=== PATIENT | male | born 1945 | race Caucasian/White ===

== ENCOUNTER 2019-04-23 07:49 | Inpatient (IN) ==
--- NOTE | 2019-04-04 10:08 | PAT Medication Instructions ---
Medication Instructions Date of Service April 04, 2019 Home Medications PreserVision AREDS 1 tab PO BID Probiotic 3,000 mmu cells PO QAM aspirin 81 mg PO QPM coenzyme Q10 [Co Q-10] 200 mg PO DAILY fluticasone propionate [Flonase Allergy Relief] 2 spray INTRANASAL DAILY PRN furosemide 40 mg PO QAM gabapentin 300 mg PO TID lisinopril 10 mg PO QAM metformin 1,000 mg PO BID multivitamin 1 cap PO QAM nitroglycerin [Nitrostat] 1 tab SUBLINGUAL UD omeprazole 40 mg PO QAM potassium chloride 20 meq PO QAM rosuvastatin [Crestor] 40 mg PO QPM vitamin B complex 1 cap PO DAILY bupropion HCl 300 mg PO QAM cholecalciferol (vitamin D3) [Vitamin D3] 50 mcg PO DAILY docusate sodium [Stool Softener] 200 mg PO HS empagliflozin 10 mg PO QAM empagliflozin [Jardiance] 10 mg PO QAM etodolac 1,000 mg PO DAILY metoprolol succinate 25 mg PO QAM sennosides 17.2 mg PO HS Continue as directed nitroglycerin [Nitrostat] 1 tab SUBLINGUAL UD ASK your surgeon for instructions etodolac 1,000 mg PO DAILY ASK your prescriber and surgeon aspirin 81 mg PO QPM STOP taking 2 weeks before surgery (or as soon as possible if surgery is within 2 weeks) PreserVision AREDS 1 tab PO BID coenzyme Q10 [Co Q-10] 200 mg PO DAILY DO NOT take the morning of surgery Probiotic 3,000 mmu cells PO QAM furosemide 40 mg PO QAM lisinopril 10 mg PO QAM metformin 1,000 mg PO BID multivitamin 1 cap PO QAM potassium chloride 20 meq PO QAM vitamin B complex 1 cap PO DAILY cholecalciferol (vitamin D3) [Vitamin D3] 50 mcg PO DAILY empagliflozin 10 mg PO QAM empagliflozin [Jardiance] 10 mg PO QAM Take morning of surgery With a small sip of water, OTHERWISE NOTHING TO EAT OR DRINK AFTER MIDNIGHT: fluticasone propionate [Flonase Allergy Relief] 2 spray INTRANASAL DAILY PRN (if needed) gabapentin 300 mg PO TID omeprazole 40 mg PO QAM bupropion HCl 300 mg PO QAM metoprolol succinate 25 mg PO QAM Take evening before surgery fluticasone propionate [Flonase Allergy Relief] 2 spray INTRANASAL DAILY PRN (if needed) gabapentin 300 mg PO TID metformin 1,000 mg PO BID rosuvastatin [Crestor] 40 mg PO QPM docusate sodium [Stool Softener] 200 mg PO HS sennosides 17.2 mg PO HS Other Notes If you have any questions please call us at [phone] or [phone] or [phone] or [phone]
--- NOTE | 2019-04-06 10:08 | Anesthesiology Consultation ---
Date of Service April 06, 2019 Assessment & Plan (1) Encounter for pre-operative examination: CHECK BSG AM DOS Chart Review Chart Review: Acceptable Risk for Surgery (pending cardio clearance 04/13) and Patient seen in Pre Admission Testing Teaching & Discussion Instructed NPO after midnight before surgery, except medications with 15 cc of water. Medication instructions provided according to the PAT guidelines. History Surgery Operation Date: 04/23/19 10:25 Proposed Procedures p L2-S1 Decompression and Fusion, Spinal Cord Monitoring - Tam Bailey DO Height/Weight Height: 6 ft 2 in Weight: 113.8 kg Allergies Allergy/AdvReac Type Severity Reaction Status Date / Time etodolac Allergy Unknown PAINFUL Verified 03/29/19 09:37 STOMACH IRRITATION Penicillins Allergy Unknown Rash Verified 03/29/19 09:37 Medications Home Medications Medication Instructions Recorded Confirmed Last Taken PreserVision AREDS 1 tab PO BID 03/08/18 03/29/19 03/08/18 1 tab Probiotic 3,000 mmu cells PO QAM 03/08/18 03/29/19 03/08/18 3000 mmu cells aspirin 81 mg PO QPM 03/08/18 03/29/19 03/06/18 coenzyme Q10 [Co Q-10] 200 mg PO DAILY 03/08/18 03/29/19 03/08/18 10 mg fluticasone propionate [Flonase 2 spray INTRANASAL DAILY PRN 03/08/18 03/29/19 Unknown Allergy Relief] furosemide 40 mg PO QAM 03/08/18 03/29/19 03/08/18 40 mg gabapentin 300 mg PO TID 03/08/18 03/29/19 03/08/18 22:00 300 mg lisinopril 10 mg PO QAM 03/08/18 03/29/19 03/08/18 10 mg metformin 1,000 mg PO BID 03/08/18 03/29/19 03/07/18 multivitamin 1 cap PO QAM 03/08/18 03/29/19 03/08/18 1 cap nitroglycerin [Nitrostat] 1 tab SUBLINGUAL UD 03/08/18 03/29/19 Unknown omeprazole 40 mg PO QAM 03/08/18 03/29/19 03/08/18 40 mg potassium chloride 20 meq PO QAM 03/08/18 03/29/19 03/08/18 20 mEq rosuvastatin [Crestor] 40 mg PO QPM 03/08/18 03/29/19 03/08/18 22:00 40 mg vitamin B complex 1 cap PO DAILY 03/08/18 03/29/19 03/08/18 1 cap bupropion HCl 300 mg PO QAM 03/29/19 03/29/19 Unknown cholecalciferol (vitamin D3) 50 mcg PO DAILY 03/29/19 03/29/19 Unknown [Vitamin D3] docusate sodium [Stool Softener] 200 mg PO HS 03/29/19 03/29/19 Unknown empagliflozin 10 mg PO QAM 03/29/19 03/29/19 Unknown empagliflozin [Jardiance] 10 mg PO QAM 03/29/19 03/29/19 Unknown metoprolol succinate 25 mg PO QAM 03/29/19 03/29/19 Unknown sennosides 17.2 mg PO HS 03/29/19 03/29/19 Unknown Past Medical History Medical History (Updated 04/06/19 @ 10:06 by Conrado Phipps) Anxiety Asthma Allergic CAD (coronary artery disease) Cervical radiculopathy Constipation Depression Diabetes mellitus, type 2 GERD (gastroesophageal reflux disease) Gum disease Painful and bleeding, to see dentist 04/06 for cleaning. Hyperlipidemia Hypertension Lumbar radiculopathy Numbness in buttocks and down LEs Myocardial Infarction 2000 and heart cath with stent x2 - [facility], then one month later CABG x 3 Osteoarthritis Peripheral neuropathy Feet and hands Sleep apnea cpap Spinal stenosis, lumbar region with neurogenic claudication Exercise / Class Metabolic Activity II 4-5 Yardwork/Stairs/Walk up hill (Denies CP or SOB with 1 FOS, does stairs daily at home (17 steps)) Past Family History Family History (Updated 03/29/19 @ 09:23 by Dedrick Allen RN) Other Family history of cancer in father Past Surgical History Surgical History History of arthroscopy right and left shoulder History of carpal tunnel release right and left History of colonoscopy History of coronary artery bypass graft 2000 and heart cath with stent x2 - [facility], a few months CABG x 3 History of ear surgery as child History of mandibular surgery hx of jaw surgery History of total knee replacement right and left Hx of cardiac cath 2000 and heart cath with stent x2 - [facility], a few months CABG x 3 Hx of foot surgery left foot and pins Hx of hand surgery repair of left thumb Hx of vasectomy and reversal Past Anesthesia History No Hx of Anesthesia Complications and No Family Hx of Anesthesia Complications History of PONV No Hx of PONV and No Hx of Motion Sickness Social History Smoking Status: Former smoker Do You Dip or Chew Tobacco: No Smoking End Date: Hx Alcohol Use: Yes Alcohol type: beer alcohol intake frequency: other Alcohol Intake Frequency Comment: A BEER EVERY 6 MON Hx Substance Use: No substance use type: does not use Review of Systems Pt denies any recent chest pain, shortness of breath, palpitations, cough, fever or URI. +sinus drainage, taking allergy pill Physical Exam Vital Signs BP: 103/68 P: 93bpm SPO2: 98% RA T: 97.6 F R: 12 ENMT Mouth: + dental restorations (possible crown) and + poor dentition; no chipped teeth and no loose teeth Thyromental Distance: > or= 3.5 Finger Breadths (4) Mallampati Class: I Neck + short neck; neck extension not limited Respiratory normal respiratory effort Auscultation: lungs clear to auscultation bilaterally Cardiovascular Rate/Rhythm: regular rhythm and + tachycardic (borderline) Heart Sounds: no murmur Vessels: no carotid bruit Extremities: no edema Testing Laboratory Results 04/06/19 10:21 04/06/19 10:21 PT 10.3 Seconds (9.0-12.0) 04/06/19 10:21 INR 1.0 (0.9-1.1) 04/06/19 10:21 APTT 32.5 Seconds (21.0-31.0) H 04/06/19 10:21 Hemoglobin A1c 7.5 % (4.5-5.6) H 04/06/19 10:21 Urine Color Yellow 04/06/19 10:21 Urine Appearance Clear (Clear) 04/06/19 10:21 Urine pH 5.0 (4.5-7.5) 04/06/19 10:21 Ur Specific [place] 1.013 (1.000-1.030) 04/06/19 10:21 Urine Protein Negative (Negative) 04/06/19 10:21 Urine Glucose (UA) 3+ (Negative) H 04/06/19 10:21 Urine Ketones Negative (Negative) 04/06/19 10:21 Urine Nitrite Negative (Negative) 04/06/19 10:21 Ur Leukocyte Esterase Negative (Negative) 04/06/19 10:21 Blood Type O Negative 04/06/19 10:21 Antibody Screen NEGATIVE 04/06/19 10:21 *Surgeon's office flagged re: elevated A1C/glucose. Electrocardiogram Date: 04/06/19 Sinus rhythm at 76 bpm with first-degree AV block and premature supraventricular complexes. Left axis deviation. 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 Compared with EKG of 03/07/2018, no significant change. Chest X-Ray Date: 04/06/19 1. Cardiomegaly without radiographic evidence of congestive failure. 2. Left greater than right bibasilar airspace opacities likely represent scarring/atelectasis. Clinical correlation will be required. *Lungs CTA on exam, pt complaining only of sinus drainage. Afebrile. Stress Test Date: 02/11/16 Type: exercise Adequate stress test at 85% MPHR. No echocardiographic evidence of exercise- induced myocardial ischemia. It should be noted that images were obtained at heart rate less than 111 bpm which may reduce the sensitivity of this test for the detection of coronary artery disease for ischemia. Equivocal 0.5 to 1 [address] ri[address]ontal downsloping ST segment depression is noted in lateral leads. Adequate cardiovascular stress. Functional capacity of 6.5 METS. No significant arrhythmias were noted. Normal blood pressure and heart rate response to exercise. Patient denied chest discomfort reporting only shortness of breath at peak exercise. Resting echo shows EF 64%. Mild concentric LVH. No LV segmental wall motion abnormalities. Grade 1 diastolic dysfunction. The left and right atrium are normal size. Right ventricular cavity size and systolic function are normal. There is aortic valve sclerosis without stenosis. There is mild mitral annular calcification.
--- NOTE | 2019-04-06 11:00 | XRay Report ---
TWO VIEW CHEST CLINICAL HISTORY: Preoperative examination. FINDINGS: PA and lateral chest radiographs are compared to study dated 12/09/2011. The heart is enlarg ed noting atherosclerotic calcification of the thoracic aorta. The pulmonary vasculature is nonconges stevan. Airspace opacities are seen at the left lung base. Scarring/atelectasis is noted bilaterally. Th ere is no pleural effusion or pneumothorax. The skeletal structures are osteopenic. The bony thorax a ppears intact. IMPRESSION: 1. Cardiomegaly without radiographic evidence of congestive failure. 2. Left greater than right bibasilar airspace opacities likely represent scarring/atelectasis. Clinic al correlation will be required. ACT 112: Negative or not required by law. Electronically signed by: Len Gonzales M.D. 04/06/2019 10:59 AM
[2019-04-06 11:30] LABS: Basophils # (auto) 0.04 K/uL (0-0.2); Basophils % (auto) 0.5 %; Eosinophils # (auto) 0.36 K/uL (0-0.5); Eosinophils % (auto) 4.7 %; Hematocrit (blood only) 43.4 % (42-52); Hemoglobin 14.6 g/dL (14.0-18.0); Immature Granulocytes # (auto) 0.02 K/uL (0.00-0.02); Immature Granulocytes % (auto) 0.3 %; Lymphocytes # (auto) 1.65 K/uL (1.2-3.4); Lymphocytes % (auto) 21.6 %; Mean Corpuscular Hemoglobin 29.5 pg (25-34); Mean Corpuscular Hgb Conc 33.6 g/dL (32-36); Mean Corpuscular Volume 87.7 fL (80-100); Mean Platelet Volume 9.8 fL (7.4-10.4); Monocytes # (auto) 0.66 K/uL (0.11-0.59); Monocytes % (auto) 8.6 %; Neutrophils # (auto) 4.91 K/uL (1.4-6.5); Neutrophils % (auto) 64.3 %; Platelet Count 253 K/uL (130-400); RDW Coefficient of Variation 15.3 % (11.5-14.5); RDW Standard Deviation 49.1 fL (36.4-46.3); Red Blood Count 4.95 M/uL (4.7-6.1); White Blood Count 7.64 K/uL (4.8-10.8)
[2019-04-06 11:31] LABS: Appearance Urine Clear (Clear); Bilirubin Urine Negative (Negative); Blood Urine Negative (Negative); Color Urine Yellow; Glucose Urine UA 3+ (Negative); Ketones Urine Negative (Negative); Leukocyte Esterase Urine Negative (Negative); Nitrite Urine Negative (Negative); Protein Urine Negative (Negative); Specific Gravity Urine 1.013 (1.000-1.030); Urobilinogen Urine Negative (Negative)
[2019-04-06 11:36] LABS: BUN Creatinine Ratio 18.9 (10-20); Calcium 9.2 mg/dl (8.5-10.1); Creatinine Clr Calc Pharmacy 62.6 ml/min; Est GFR (African American) 56.9; Est GFR (Non-African American) 49.1; Potassium 3.9 mmol/L (3.5-5.1)
[2019-04-06 11:45] LABS: Partial Thromboplastin Ratio 1.2; Partial Thromboplastin Time 32.5 Seconds (21.0-31.0); Prothrombin Time 10.3 Seconds (9.0-12.0)
[2019-04-06 11:56] LABS: Estimated Average Glucose 169 mg/dl; Hemoglobin A1C 7.5 % (4.5-5.6)
--- NOTE | 2019-04-06 12:11 | Electrocardiogram Report ---
Test Reason : Blood Pressure : / mmHG Vent. Rate : 076 BPM Atrial Rate : 076 BPM P-R Int : 256 ms QRS Dur : 096 ms QT Int : 406 ms P-R-T Axes : 022 -30 077 degrees QTc Int : 456 ms Sinus rhythm with 1st degree A-V block with Premature supraventricular complexes Left axis deviation Old Inferior infarct (cited on or before 09-DEC-2011) Old Anterior infarct (cited on or before 09-DEC-2011) Abnormal ECG When compared with ECG of 07-MAR-2018 11:35, No significant change Confirmed by Mendoza Ramírez ([id number]) on 04/06/2019 12:11:26 PM Referred By: Tam Bailey Confirmed By:Mendoaz Ramírez
[~2019-04-23 07:49] MED LIST: CEFAZOLIN 2000MG 2,000 MG/15 ML SYR IV SCH; CLINDAMYCIN 600 MG/54 ML BAG IV SCH; GABAPENTIN 300 MG CAP PO SCH; LR 15ML/HR IV SCH
[2019-04-23] MEDS ORDERED: ONDANSETRON INJ 2 MG/ML 2 ML VIAL ONE (08:37)
[2019-04-23] MEDS ORDERED: DEXAMETHASONE SOD INJ 4 MG/ML VIAL ONE (08:37)
[2019-04-23] MEDS ORDERED: LIDOCAINE HCL 2% 2 ML VIAL/AMP(20MG/ML) INFIL ONE (08:37)
[2019-04-23] MEDS ORDERED: NEOSTIGMINE METHYLSULFATE 1 MG/ML 10ML VIAL ONE (08:37)
[2019-04-23] MEDS ORDERED: PROPOFOL IV EMULSION 10 MG/ML 20 ML VIAL IV ONE (08:37)
[2019-04-23] MEDS ORDERED: ROCURONIUM BROMIDE 10 MG/ML 5 ML VIAL ONE ×2 (08:37→10:57)
[2019-04-23] MEDS ORDERED: MIDAZOLAM HCL 1 MG/ML 2ML VIAL ONE (08:37)
[2019-04-23] MEDS ORDERED: fentaNYL citrate 100 MCG/2 ML VIAL ONE ×2 (08:37→12:54)
[2019-04-23] MEDS ORDERED: GLYCOPYRROLATE 0.2 MG/ML VIAL ONE (08:37)
[2019-04-23] MEDS ORDERED: METOCLOPRAMIDE HCL INJ 5 MG/ML 2 ML VIAL IV PRN ×2 (09:36→14:41)
[2019-04-23] MEDS ORDERED: PROMETHAZINE HCL 12.5 MG in SODIUM CHLORIDE 0.9% 50 ML IV PRN ×2 (09:36→14:41)
[2019-04-23] MEDS ORDERED: HYDROmorphone INJ 2 MG/ML SYR/VIAL IV PRN (09:36)
[2019-04-23] MEDS ORDERED: ATROPINE SULFATE 0.1 MG/ML 10ML SYR IV PRN (09:36)
[2019-04-23] MEDS ORDERED: ePHEDrine sulfate 50 MG/ML AMP IV PRN (09:36)
[2019-04-23] MEDS ORDERED: ONDANSETRON INJ 2 MG/ML 2 ML VIAL IV PRN ×2 (09:36→14:41)
--- NOTE | 2019-04-23 09:42 | History & Physical Bridge Note ---
Date of Service April 23, 2019 History & Physical Bridge Note I have examined the patient, reviewed the History & Physical and in the interval since the performance of the History & Physical I have noted the following changes of clinical significance: no changes noted
--- NOTE | 2019-04-23 09:43 | History & Physical Report ---
Date of Service April 23, 2019 Assessment & Plan (1) Neurogenic claudication due to lumbar spinal stenosis: L2-S1 decompression fusion Present on Admission?: Yes History of Present Illness Chief Complaint: Back and leg pain Primary Care Provider: NO PCP This is a 73-year-old male that presents with chronic persistent back and leg pain. After failing extensive course of nonoperative care is here for surgical intervention. Allergies Allergy/AdvReac Type Severity Reaction Status Date / Time etodolac Allergy Unknown PAINFUL Verified 04/23/19 08:20 STOMACH IRRITATION Penicillins Allergy Unknown Rash Verified 04/23/19 08:20 Home Medications Home Medications Medication Instructions Recorded Confirmed Type PreserVision AREDS 1 tab PO BID 03/08/18 04/23/19 History Probiotic 3,000 mmu cells PO QAM 03/08/18 04/23/19 History aspirin 81 mg PO QPM 03/08/18 04/23/19 History coenzyme Q10 [Co Q-10] 200 mg PO DAILY 03/08/18 04/23/19 History fluticasone propionate [Flonase 2 spray INTRANASAL DAILY PRN 03/08/18 04/23/19 History Allergy Relief] furosemide 40 mg PO QAM 03/08/18 04/23/19 History lisinopril 10 mg PO QAM 03/08/18 04/23/19 History metformin 1,000 mg PO BID 03/08/18 04/23/19 History multivitamin 1 cap PO QAM 03/08/18 04/23/19 History nitroglycerin [Nitrostat] 1 tab SUBLINGUAL UD 03/08/18 04/23/19 History omeprazole 40 mg PO QAM 03/08/18 04/23/19 History potassium chloride 20 meq PO QAM 03/08/18 04/23/19 History rosuvastatin [Crestor] 40 mg PO QPM 03/08/18 04/23/19 History vitamin B complex 1 cap PO DAILY 03/08/18 04/23/19 History bupropion HCl 300 mg PO QAM 03/29/19 04/23/19 History docusate sodium [Stool Softener] 200 mg PO HS 03/29/19 04/23/19 History empagliflozin [Jardiance] 10 mg PO QAM 03/29/19 04/23/19 History metoprolol succinate 25 mg PO QAM 03/29/19 04/23/19 History sennosides 17.2 mg PO HS 03/29/19 04/23/19 History Past Med/Surg History Surgical History History of arthroscopy right and left shoulder History of carpal tunnel release right and left History of colonoscopy History of coronary artery bypass graft 2000 and heart cath with stent x2 - [facility], a few months CABG x 3 History of ear surgery as child History of mandibular surgery hx of jaw surgery History of total knee replacement right and left Hx of cardiac cath 2000 and heart cath with stent x2 - [facility], a few months CABG x 3 Hx of foot surgery left foot and pins Hx of hand surgery repair of left thumb Hx of vasectomy and reversal Family History (Updated 03/29/19 @ 09:23 by Dedrick Allen RN) Other Family history of cancer in father Social History Preferred Language: Macedonian Communication Ability: Effective Warp Tension Tester Required: No Beliefs That Will Affect Care: None Current Living Situation: Spouse Other Information That Helps Us Care for You: No Feels Safe at Home: Yes Smoking Status: Former smoker Do You Dip or Chew Tobacco: No ; Smoking End Date: ; Second Hand Exposure: No ; Hx Alcohol Use: Yes Alcohol type: beer Hx Substance Use: No Physical Exam Physical Exam: Patient alert and oriented neurologically intact. Results & Data Vital Signs (Past 12 Hours) Vital Signs Temp Pulse Resp BP Pulse Ox 04/23/19 08:26 36.4 C L 90 16 115/80 99
[2019-04-23] MEDS ORDERED: BACITRACIN INJ 50,000 UNIT VIAL ONE (10:10)
[2019-04-23] MEDS ORDERED: BUPIVACAINE/EPINEPHRINE 0.25% 1:200,000 30 ML VIAL ONE (10:10)
[2019-04-23] MEDS ORDERED: PHENYLEPHRINE 100MCG/ML 5ML SYR ONE (10:54)
[2019-04-23] MEDS ORDERED: FLOSEAL HEMOSTATIC MATRIX 10ML TOP ONE (13:03)
--- NOTE | 2019-04-23 13:07 | Operative Report ---
Post Operative Report Pre & Post Diagnosis Operation Date: 04/23/19 10:05 Pre-Op Diagnosis: Neurogenic claudication due to lumbar spinal stenosis Post-Op Diagnosis: Neurogenic claudication due to lumbar spinal stenosis I identified the patient and participated in the time-out.: Yes Procedure Operation Date: 04/23/19 10:05 Actual Procedures #1 lumbar decompression with bilateral medial facetectomies and foraminotomies L2-3 L3-4 L4-5 L5-S1. #2 posterior spinal fusion L2-S1. #3 placed posterior segmental instrumentation L2-S1. #4 interbody fusion L4-5 per #5 placed a peek cage 11 x 26 mm at L for 5. #6 placement locally harvested morselized autograft in the posterior lateral gutters. #7 placement infuse collagen sponge bone master graft in the posterior lateral gutters and ostial amp in the interbody space. Surgeon Tam Bailey, Dump Motorman Molly Medina Estimated Blood Loss 600 Findings See Below The patient is 6 foot 2 inches tall weighing over 113 kg with a BMI in excess of 32. This combined with an EBL in excess of 600 cc. Significant technical difficulty adding at least 40% increase to the operative time. Specimens None Indications This is a 73-year-old male who presents with above-mentioned diagnosis after failing extensive course of nonoperative care is here for the above-mentioned procedure. Description of Procedure Patient was met with identified informed consent obtained. Patient was then taken to the operative suite underwent an patient placed in a prone position the Chris table on top of the Cullen frame. All bony prominences well-padded eyes inspected to ensure no external pressure placed upon the peer at this point the lumbar spine was prepped and draped in normal sterile fashion. Sharp dissection with the assistance of Bovie cautery was performed down to and exposing the lamina and transverse processes of L2 L3-L4-L5 and S1. From a caudal cephalad fashion complete laminectomy of L5 L4 L3 and L2 was performed including bilateral medial facetectomies and foraminotomies addressing severe spinal s tenosis. Pedicle screws were then placed in L2 L3-L4-L5 and S1 levels bilaterally with assistance of fluoroscopy the proper sized evelina placed. By way of a trans-foraminal approach and left complete discectomy of L4-5 was performed endplates curetted to subcortical bleeding bone and a 11 x 26 mm peek cage filled with osteo-bone graft tapped position. The rods and locked into final position bilaterally. Transverse processes of L2 L3-L4-L5 and the sacral ala burred to subcortical bleeding bone. Infuse collagen sponge master graft local autograft placed in the posterior lateral gutters. 15 round ERMIAS drain inserted. Incision was then closed with 1 Vicryl the fascia 2-0 Vicryl subcutaneously and 4 Monocryl for final skin closure. Steri-Strips dressings placed. Patient will continue PACU stable disc. Please note spinal cord monitoring was utilized that the procedure no changes noted. Lastly Molly Medina was present at the entire procedure involved the patient positioning complex portions of the surgery and final skin closure. I attest to the content of the Intraoperative Record and any orders documented therein. Any exceptions are noted below.
--- NOTE | 2019-04-23 13:25 | Fluoroscopy Report ---
FL lumbar spine 2-3V HISTORY: 73 years-old Male L2-S1 DECOMP/FUSION chronic low back pain COMPARISON: None available TECHNIQUE: 3 spot fluoroscopic images of the lumbar spine were obtained utilizing 27.3 seconds fluoro scopy time FINDINGS: Posterior interbody evelina and screw fusion with posterior decompression noted at L2-S1 with discectomy changes at L4-L5. The hardware appears intact. Spinal alignment appears satisfactory. Multilevel disc space narrowing with spondylitic spurring. IMPRESSION: Fluoroscopic assistance as above. Please see operative report for further details. ACT 112: Negative or not required by law. The above report was generated using voice recognition software. It may contain grammatical, syntax o r spelling errors. Electronically signed by: Joe Cruz M.D. 04/23/2019 1:23 PM
[2019-04-23] MEDS: fentaNYL citrate 100 MCG/2 ML VIAL IV PRN ×4 (13:36→13:51)
--- NOTE | 2019-04-23 14:13 | Anesthesiology Progress Note ---
Date of Service April 23, 2019 Anesthesia Post Procedure Vital Signs Vital Signs: Temp Pulse Pulse Resp BP BP Pulse Ox 04/23/19 14:05 70 16 124/69 95 04/23/19 13:55 85 16 115/67 95 04/23/19 13:45 88 16 120/70 95 04/23/19 13:35 91 H 16 135/80 95 04/23/19 13:27 36.1 C L 101 H 16 134/92 96 04/23/19 08:26 36.4 C L 90 16 115/80 99 Pain Intensity Generalized: Pain Intensity: 2 Transfer of Care Handoff Completed per policy Notes Mental Status: alert / awake / arousable and participated in evaluation Patient Amnestic to Procedure: Yes Nausea / Vomiting: adequately controlled Pain: adequately controlled Airway Patency, RR, SpO2: stable & adequate BP & HR: stable & adequate Hydration State: stable & adequate Anesthetic Complications: no major complications apparent
[2019-04-23] MEDS ORDERED: DO NOT ADMINISTER PNEUMOCOCCAL VACCINE PRN (14:41)
[2019-04-23] MEDS ORDERED: LORazepam 0.5 MG/1 ML VIAL IV PRN (14:41)
[2019-04-23] MEDS ORDERED: ONDANSETRON 4 MG OD TAB PO PRN (14:41)
[2019-04-23] MEDS ORDERED: bisacodyL 10 MG SUPP PR PRN (14:41)
[2019-04-23] MEDS ORDERED: FAMOTIDINE 20 MG TAB PO PRN (14:41)
[2019-04-23] MEDS ORDERED: NITROGLYCERIN SL 0.4 MG/TAB TAB SL PRN (14:41)
[2019-04-23] MEDS ORDERED: NALOXONE HCL 0.4 MG/1 ML VIAL/CARP IV PRN (14:41)
[2019-04-23] MEDS ORDERED: ALUMINUM/MAGNESIUM SUSP 30 ML UDC PO PRN (14:41)
[2019-04-23] MEDS ORDERED: LORazepam 0.5 MG TAB PO PRN (14:41)
[2019-04-23] MEDS ORDERED: HYDROmorphone INJ 1 MG/ML SYRINGE IV PRN (14:41)
[2019-04-23] MEDS ORDERED: SOD PHOSPHATE/SOD BIPHOSPHATE ENEMA 132 ML BTL PR PRN (14:41)
[2019-04-23] MEDS ORDERED: DO NOT ADMINISTER FLU VACCINE PRN (14:41)
[2019-04-23] MEDS ORDERED: ACETAMINOPHEN 1,000 MG/100 ML VIAL IV PRN (14:41)
[2019-04-23] MEDS ORDERED: GLUCAGON FOR INJ 1 MG VIAL SQ PRN (16:07)
[2019-04-23] MEDS ORDERED: GLUCOSE 40% GEL 15 GM TUBE PO PRN (16:07)
[2019-04-23] MEDS ORDERED: GLUCOSE 10 TABS/TUBE PO PRN (16:07)
[2019-04-23] MEDS ORDERED: CARBOHYDRATES FOR HYPOGLYCEMIA PO PRN (16:07)
[2019-04-23] MEDS ORDERED: DEXTROSE 50% 50 ML SYRINGE IV PRN (16:07)
--- NOTE | 2019-04-23 16:13 | History & Physical Report ---
Date of Service April 23, 2019 Assessment & Plan (1) Status post lumbar surgery: Post op day# 0 S/P L2-S1 decompression and fusion by Dr Lynn MERA #600ml -pain management per ortho -wound management per ortho -PT/OT as appropriate -DVT prophylaxis per ortho -incentive spirometry -monitor H&H for acute blood loss anemia; Pre-op Hgb: 14.6 (2) CAD (coronary artery disease): S/P stent, CABG x 3 No CP or SOB -Resume aspirin -Continue metoprolol, rosuvastatin (3) Hypertension: BP currently on low side -Hold lisinopril, lasix and reassess tomorrow (4) Diabetes mellitus, type 2: A1c: 7.5 in 04/06/2019 -Hold Jardiance, metformin -Diabetic diet, monitor BSGs -Basal bolus insulin per protocol (5) Hyperlipidemia: -Continue rosuvastatin (6) CKD (chronic kidney disease), stage III: Baseline Cr~1.4 -Monitor renal functions -Avoid nephrotoxic agents when possible (7) Sleep apnea: -CPAP HS (8) Depression: -Continue Wellbutrin (9) GERD (gastroesophageal reflux disease): -Continue PPI DVT Prophylaxis -SCD per ortho Disposition per primary service Follows with Mandy Moore PA-C at [facility] for routine care Pt was seen and care coordinated with Dr Muhammad. See addendum Pt will be followed by Dr Lee starting 04/24/2019. Thank you for this consultation. We will follow the patient with you during their hospital stay. You [facility] via pager @ [phone]. History of Present Illness Chief Complaint: post op medical management Primary Care Provider: Mandy Moore PA-C Pt is 73 y/o M with PMH CAD s/p stent, CABG x 3, HTN, HLD, DM II, CKD III, depression, GERD, ECHO on CPAP, BPH seen in consultation for post op medical management s/p L2-S1 decompression and fusion today by . Post op pt reports tired after anesthesia. Currently reports back pain controlled and denies any LE pain or paresthesias. Reports BM yesterday. Current Corrigan catheter. Denies nausea, vomiting, CP, SOB. Denies fever/chills, diaphoresis, CALLE, dizziness, syncope, vision changes, neck pain, orthopnea, palpitations, cough, sore throat, choking, otalgia, rhinorrhea, abdominal pain, paresthesias, weakness, extremity edema, rashes, urinary symptoms. Allergies Allergy/AdvReac Type Severity Reaction Status Date / Time etodolac Allergy Unknown PAINFUL Verified 04/23/19 08:20 STOMACH IRRITATION Penicillins Allergy Unknown Rash Verified 04/23/19 08:20 Home Medications Home Medications Medication Instructions Recorded Confirmed Type PreserVision AREDS 1 tab PO BID 03/08/18 04/23/19 History Probiotic 3,000 mmu cells PO QAM 03/08/18 04/23/19 History aspirin 81 mg PO QPM 03/08/18 04/23/19 History coenzyme Q10 [Co Q-10] 200 mg PO DAILY 03/08/18 04/23/19 History fluticasone propionate [Flonase 2 spray INTRANASAL DAILY PRN 03/08/18 04/23/19 History Allergy Relief] furosemide 40 mg PO QAM 03/08/18 04/23/19 History lisinopril 10 mg PO QAM 03/08/18 04/23/19 History metformin 1,000 mg PO BID 03/08/18 04/23/19 History multivitamin 1 cap PO QAM 03/08/18 04/23/19 History nitroglycerin [Nitrostat] 1 tab SUBLINGUAL UD 03/08/18 04/23/19 History omeprazole 40 mg PO QAM 03/08/18 04/23/19 History potassium chloride 20 meq PO QAM 03/08/18 04/23/19 History rosuvastatin [Crestor] 40 mg PO QPM 03/08/18 04/23/19 History vitamin B complex 1 cap PO DAILY 03/08/18 04/23/19 History bupropion HCl 300 mg PO QA 03/29/19 04/23/19 History docusate sodium [Stool Softener] 200 mg PO 03/29/19 04/23/19 History empagliflozin [Jardiance] 10 mg PO QA 03/29/19 04/23/19 History metoprolol succinate 25 mg PO QA 03/29/19 04/23/19 History sennosides 17.2 mg PO 03/29/19 04/23/19 History oxycodone 5 mg PO Q6H PRN #30 tab 04/23/19 Rx tramadol 50 mg PO Q6H PRN #30 tab 04/23/19 Rx Past Med/Surg History Medical History (Updated 04/23/19 @ 16:21 by Delia Escalante PA-C) Anxiety Asthma Allergic CAD (coronary artery disease) Cervical radiculopathy CKD (chronic kidney disease), stage III Constipation Depression Diabetes mellitus, type 2 GERD (gastroesophageal reflux disease) Gum disease Painful and bleeding, to see dentist 04/06 for cleaning. Hyperlipidemia Hypertension Lumbar radiculopathy Numbness in buttocks and down LEs Myocardial Infarction 2000 and heart cath with stent x2 - [facility], then one month later CABG x 3 Osteoarthritis Peripheral neuropathy Feet and hands Sleep apnea cpap Spinal stenosis, lumbar region with neurogenic claudication Surgical History (Updated 04/23/19 @ 16:21 by Delia Escalante PA-C) History of arthroscopy right and left shoulder History of carpal tunnel release right and left History of colonoscopy History of coronary artery bypass graft 2000 and heart cath with stent x2 - [facility], a few months CABG x 3 History of ear surgery as child History of mandibular surgery hx of jaw surgery History of total knee replacement right and left Hx of cardiac cath 2000 and heart cath with stent x2 - [facility], a few months CABG x 3 Hx of foot surgery left foot and pins Hx of hand surgery repair of left thumb Hx of vasectomy and reversal Family History (Updated 03/29/19 @ 09:23 by Dedrick Allen RN) Other Family history of cancer in father Social History (Updated 04/23/19 @ 16:19 by Delia Escalante PA-C) Preferred Language: Thai Communication Ability: Effective Ortho/Prosthetic Aide Required: No Beliefs That Will Affect Care: None Current Living Situation: Spouse Other Information That Helps Us Care for You: No Feels Safe at Home: Yes Smoking Status: Former smoker Do You Dip or Chew Tobacco: No ; Smoking End Date: ; Second Hand Exposure: No ; Hx Alcohol Use: Yes Alcohol type: beer Alcohol Intake Frequency: Rarely Hx Substance Use: No Review of Systems Review of Systems: All systems reviewed & are unremarkable except as noted in HPI & below Physical Exam Physical Exam: General: no acute distress, obese Head: normocephalic, atraumatic Eyes: PERRL, EOM's intact, conjunctiva non-injected, anicteric ENT: normal inspection external ears, nose, mucous membranes moist Neck: supple, trachea midline Lungs: clear, no respiratory distress, no wheezing/rhonchi/rales CV: RRR, no murmur, no pretibial edema Abd: normal BS, soft, non-tender Back: surgical dressing in place and dry Ext: no cyanosis, no calf tenderness; pedal pushes and pulls intact bilaterally, distal pulses intact, sensation to light touch intact Neuro: Currently drowsy, otherwise A&O x 3, no focal deficits noted, normal affect Skin: warm, dry Results & Data Vital Signs (Past 12 Hours) Vital Signs Temp Pulse Pulse Pulse Resp BP BP 04/23/19 15:44 36.7 C 71 18 99/61 L 04/23/19 14:50 36.4 C L 76 16 117/69 04/23/19 14:20 36.3 C L 88 16 116/76 04/23/19 14:10 36.5 C 04/23/19 14:05 70 16 124/69 04/23/19 13:55 85 16 115/67 04/23/19 13:45 88 16 120/70 04/23/19 13:35 91 H 16 135/80 04/23/19 13:27 36.1 C L 101 H 16 134/92 04/23/19 08:26 36.4 C L 90 16 115/80 Pulse Ox 04/23/19 15:44 97 04/23/19 14:50 96 04/23/19 14:20 93 04/23/19 14:10 04/23/19 14:05 95 04/23/19 13:55 95 04/23/19 13:45 95 04/23/19 13:35 95 04/23/19 13:27 96 04/23/19 08:26 99 Code Status & VTE Plan VTE Prophylaxis Plan VTE Prophylaxis will be ordered: Yes Supervising Physician Co-Signing Physician Notes Care coordinated with Delia Escalante PA-C. Agree with above note. Patien t seen and examined. Please refer to her notes for full details. Vital signs reviewed. Physical exam: General exam:Drowsy but oriented CVS: S1 and S2 heard, regular rate and rhythm, no murmurs. RS: Clear to auscultation, no wheezing or crackles. ABD: Soft, bowel sounds present, nontender, no distention. RUBBER PRESS TENDER: Drowsy, Obeys commands, oriented x 3 Musculoskeletal; S/p Back surgery Drain seen EXT: No edema, no erythema. Labs: Reviewed. Assessment and plan: 73M with hx of cad s/p cabg, echo on cpap, HTN, DM s/p back surgery Back surgery post op management as per ortho Hypotension iv fluids holding lisinopril an lasix lopressor with holding parameters Other diagnosis and plan of care as per Delia Escalante PA-C.. Juan wu MD.
[2019-04-23] MEDS: TRAMADOL HCL 50 MG TABLET PO PRN (16:25)
[2019-04-23] MEDS ORDERED: SODIUM CHLORIDE 0.9% 1000ML 500 ML IV ONE (17:26)
[2019-04-23 18:03] LABS: Hematocrit (blood only) 36.4 % (42-52)
[2019-04-23] MEDS: INSULIN ASPART 100 UNITS/ML 3 ML PEN SC SCH ×2 (18:27→20:55)
[2019-04-23] MEDS: SODIUM CHLORIDE 0.9% 1000ML 1,000 ML IV SCH (18:29)
[2019-04-23] MEDS: CLINDAMYCIN 600 MG in DEXTROSE 5% 50 ML IV SCH (18:42)
[2019-04-23 20:10] LABS: BUN Creatinine Ratio 21.9 (10-20); Calcium 8.3 mg/dl (8.5-10.1); Creatinine Clr Calc Pharmacy 78.1 ml/min; Est GFR (African American) 74.3; Est GFR (Non-African American) 64.1; Potassium 4.5 mmol/L (3.5-5.1)
[2019-04-23] MEDS: ASPIRIN 81 MG ECTAB PO SCH (20:53)
[2019-04-23] MEDS: ROSUVASTATIN CALCIUM 20 MG TAB PO SCH (20:53)
[2019-04-23] MEDS: CEROVITE ADV FORMULA TAB PO SCH (20:53)
[2019-04-23] MEDS: DOCUSATE SODIUM/SENNA 50/8.6MG TAB PO SCH (20:54)
[2019-04-23] MEDS: INSULIN GLARGINE SOLOSTAR 100 UNITS/ML 3 ML PEN SC SCH (20:56)
[2019-04-23] MEDS ORDERED: DOCUSATE SODIUM 100 MG CAP PO SCH (21:00)
[2019-04-23] MEDS ORDERED: SENNA 8.6 MG TAB PO SCH (21:00)
[2019-04-24] MEDS: CLINDAMYCIN 600 MG in DEXTROSE 5% 50 ML IV SCH (02:14)
[2019-04-24] MEDS: SODIUM CHLORIDE 0.9% 1000ML 1,000 ML IV SCH ×4 (02:14→22:14)
[2019-04-24] MEDS: POLYETHYLENE (MIRALAX) 17 GM PACK PO SCH ×4 (05:18→23:58)
[2019-04-24 05:22] LABS: Basophils # (auto) 0.01 K/uL (0-0.2); Basophils % (auto) 0.1 %; Eosinophils # (auto) 0.03 K/uL (0-0.5); Eosinophils % (auto) 0.4 %; Hematocrit (blood only) 33.1 % (42-52); Immature Granulocytes # (auto) 0.02 K/uL (0.00-0.02); Immature Granulocytes % (auto) 0.2 %; Lymphocytes # (auto) 1.35 K/uL (1.2-3.4); Lymphocytes % (auto) 15.9 %; Mean Corpuscular Hemoglobin 29.3 pg (25-34); Mean Corpuscular Hgb Conc 33.2 g/dL (32-36); Mean Platelet Volume 9.2 fL (7.4-10.4); Monocytes # (auto) 1.25 K/uL (0.11-0.59); Monocytes % (auto) 14.7 %; Neutrophils # (auto) 5.85 K/uL (1.4-6.5); Neutrophils % (auto) 68.7 %; Platelet Count 202 K/uL (130-400); RDW Coefficient of Variation 15.3 % (11.5-14.5); RDW Standard Deviation 49.3 fL (36.4-46.3); Red Blood Count 3.76 M/uL (4.7-6.1); White Blood Count 8.51 K/uL (4.8-10.8)
[2019-04-24 05:51] LABS: BUN Creatinine Ratio 21.6 (10-20); Calcium 8.2 mg/dl (8.5-10.1); Creatinine Clr Calc Pharmacy 79.5 ml/min; Est GFR (African American) 75.9; Est GFR (Non-African American) 65.5; Potassium 4.5 mmol/L (3.5-5.1)
--- NOTE | 2019-04-24 08:13 | Anesthesiology Progress Note ---
Date of Service April 24, 2019 Anesthesia Post Procedure Vital Signs Vital Signs: Temp Pulse Pulse Pulse Resp BP BP 04/24/19 07:33 36.4 C L 94 H 16 103/65 04/24/19 05:17 103/65 04/24/19 03:09 36.3 C L 89 16 106/63 04/24/19 01:27 118/74 04/23/19 23:30 98/48 L 04/23/19 23:27 114/40 L 04/23/19 23:14 36.7 C 75 16 04/23/19 19:30 36.4 C L 93 H 16 90/51 L 04/23/19 18:24 92/40 L 04/23/19 17:25 98/56 L 04/23/19 17:21 78/36 L 04/23/19 17:19 74/35 L 04/23/19 17:09 36.8 C 74 18 75/49 L 04/23/19 16:14 36.5 C 80 17 99/65 L 04/23/19 15:44 36.7 C 71 18 99/61 L 04/23/19 14:50 36.4 C L 76 16 117/69 04/23/19 14:20 36.3 C L 88 16 116/76 04/23/19 14:10 36.5 C 04/23/19 14:05 70 16 124/69 04/23/19 13:55 85 16 115/67 04/23/19 13:45 88 16 120/70 04/23/19 13:35 91 H 16 135/80 04/23/19 13:27 36.1 C L 101 H 16 134/92 04/23/19 08:26 36.4 C L 90 16 115/80 Pulse Ox 04/24/19 07:33 96 04/24/19 05:17 04/24/19 03:09 96 04/24/19 01:27 04/23/19 23:30 04/23/19 23:27 04/23/19 23:14 96 04/23/19 19:30 95 04/23/19 18:24 04/23/19 17:25 04/23/19 17:21 04/23/19 17:19 04/23/19 17:09 98 04/23/19 16:14 96 04/23/19 15:44 97 02/03/20 14:50 96 04/23/19 14:20 93 04/23/19 14:10 04/23/19 14:05 95 04/23/19 13:55 95 04/23/19 13:45 95 04/23/19 13:35 95 04/23/19 13:27 96 04/23/19 08:26 99 Pain Intensity Generalized: Pain Intensity: 2 Bilateral Back: Pain Intensity: 5 Notes Mental Status: alert / awake / arousable and participated in evaluation Patient Amnestic to Procedure: Yes Nausea / Vomiting: see Notes below Pain: adequately controlled Airway Patency, RR, SpO2: stable & adequate BP & HR: stable & adequate Hydration State: stable & adequate Anesthetic Complications: no major complications apparent and Pt Satisfied with anesthetic care
[2019-04-24] MEDS: POTASSIUM CHLORIDE 20 MEQ TABCR PO SCH (08:40)
[2019-04-24] MEDS: VITAMIN B COMPLEX TAB PO SCH (08:41)
[2019-04-24] MEDS: PANTOprazole 40 MG TAB PO SCH (08:41)
[2019-04-24] MEDS: CEROVITE ADV FORMULA TAB PO SCH ×2 (08:41→22:07)
[2019-04-24] MEDS: BuPROPion XL 300 MG TABCR PO SCH (08:42)
[2019-04-24] MEDS: INSULIN ASPART 100 UNITS/ML 3 ML PEN SC SCH ×4 (08:46→21:34)
[2019-04-24] MEDS: INSULIN GLARGINE SOLOSTAR 100 UNITS/ML 3 ML PEN SC SCH ×2 (08:46→22:10)
[2019-04-24] MEDS: TRAMADOL HCL 50 MG TABLET PO PRN (08:55)
[2019-04-24] MEDS ORDERED: METOPROLOL SUCC 25MG EXT REL TAB PO SCH (09:00)
[2019-04-24] MEDS ORDERED: NON-FORMULARY MEDICATION (Coenzyme Q10 [Co Q-10] 200 MG) PO SCH (09:00)
[2019-04-24] MEDS ORDERED: FUROSEMIDE 40 MG TAB PO SCH (09:00)
[2019-04-24] MEDS ORDERED: lisinopriL 10 MG TAB PO SCH (09:00)
[2019-04-24] MEDS ORDERED: NON-FORMULARY MEDICATION (Multivitamin 1 CAP) PO SCH (09:00)
--- NOTE | 2019-04-24 09:00 | Hospitalist Progress Note ---
Date of Service April 24, 2019 Assessment & Plan (1) Status post lumbar surgery: Post op day# 1 S/P L2-S1 decompression and fusion by EBL #600ml; ERMIAS drain 490ml pain/wound management per ortho activity and therapy as directed by ortho DVT prophylaxis per ortho encourage incentive spirometry (2) Anemia: 11.0 and 33.1 today, pre op Hgb: 14.6 monitor H/H hemodynamically stable (3) CAD (coronary artery disease): S/P stent, CABG x 3 No CP or SOB continue ASA, metoprolol and statin (4) Hypertension: BP continues to be on low side continue IVF for now continue to Hold lisinopril, lasix and reassess (5) Diabetes mellitus, type 2: A1c: 7.5 in 04/06/2019 Hold Jardiance, metformin Diabetic diet, monitor BSGs Basal bolus insulin per protocol BSG 136 (6) Hyperlipidemia: Continue rosuvastatin (7) CKD (chronic kidney disease), stage III: Baseline Cr~1.4, bun/cr 24 and 1.11 today Monitor renal functions Avoid nephrotoxic agents when possible (8) Sleep apnea: CPAP HS and during day when napping to prevent lethargy (9) Depression: Continue Wellbutrin, mood stable (10) GERD (gastroesophageal reflux disease): Continue PPI DVT Prophylaxis SCD per ortho Disposition per primary service Follows with Mandy Moore PA-C at [facility] for routine care Pt was seen and care coordinated with Dr Lee. Please see addendum. Thank you for this consultation. We will follow the patient with you during their hospital stay. You can reach a member of the [facility] Hospitalist Team 11/10 via pager @ [phone]. Supervising Physician Co-Signing Physician Notes Attending Addendum: delayed entry date of service noted above care coordinated with GALINA Vuong please refer to her notes for full details, I agree with her notes patient seen and examined, records reviewed by myself as well on exam, patient seen resting in bed, comfortable states pain is well controlled ambulated in the halls with no dizziness, presyncope, chest pain, dyspnea no other symptoms VS noted and reviewed oriented x 3, not in distress, speaks in sentences with no effort nor accessory muscle use normal rate, regular rhythm, no murmurs clear breath sounds bilaterally non distended, soft, nontender no bipedal edema, erythema, warmth no neuro deficits Hg 11 Crea 1.1 ASSESSMENT AND PLAN S/P BACK SURGERY BP on the low side no signs of sepsis from anesthesia? dehydration? continue IV fluids hold Lisinopril, HCTZ reduce Metoprolol from 25 to 12.5mg, monitor HR Anemia Hg 11 monitor other diagnoses and plan of care as per GALINA Vuong notes Conrado Lee MD Subjective Pt seen and examined in room 310-1. S/P Lumbar Decompression and fusion L2-S1 POD #1 by . "I've been better." Complains of incisional pain 5/10. Sitting up eating breakfast. Denies f/c/s, chest pain, sob, cough, n/v/d, abdominal pain. Did have nausea and emesis yesterday and this has resolved. Appetite reduced, "I am eating because I have to." States he has not been up since having surgery. Per RN he is more alert and arousable today than yesterday but groaning and complaining of pain. Blood pressure improved. No issue overnight. Compliant with his CPAP. Review of Systems Review of Systems: All systems reviewed & are unremarkable except as noted in HPI & below Physical Exam Physical Exam: Gen: WD/WN, M, groaning with pain, but sitting up eating breakfast, NAD, A&O x3 HEENT: Normocephalic, atraumatic, conjunctivae moist, sclerae anicteric, mucous membranes moist. Lung: Clear to Auscultation bilaterally, no wheezes/rales/rhonchi Heart: Regular rate, regular rhythm, no murmurs, rubs, or gallops Abdomen: Soft, protuberant abd, NT, ND +BS x 4 Extremities: No edema b/l, b/l scd in place Skin: Warm, no rash, negative turgor. Lumbar dressing CDI : Corrigan draining clear yellow urine Results & Data ([facility]) Vital Signs (Past 12 Hours) Vital Signs Temp Pulse Resp BP BP Pulse Ox 04/24/19 07:33 36.4 C L 94 H 16 103/65 96 04/24/19 05:17 103/65 04/24/19 03:09 36.3 C L 89 16 106/63 96 04/24/19 01:27 118/74 04/23/19 23:30 98/48 L 04/23/19 23:27 114/40 L 04/23/19 23:14 36.7 C 75 16 96 Laboratory Results Short CBC 04/23/19 04/24/19 Range/Units 17:54 05:00 WBC 8.51 (4.8-10.8) K/uL Hgb 12.0 L 11.0 L (14.0-18.0) g/dL Hct 36.4 L 33.1 L (42-52) % Plt Count 202 (130-400) K/uL BMP 04/23/19 04/24/19 19:44 05:00 Sodium 136 137 Potassium 4.5 4.5 Chloride 105 104 Carbon Dioxide 24 29 BUN 25 H 24 H Creatinine 1.13 1.11 Glucose 160 H 146 H Calcium 8.3 L 8.2 L Medications Administered Aspirin (Ecotrin Ectab) 81 mg PO QPM [facility] Stop: 05/23/19 20:59 Last Admin: 04/23/19 20:53 Dose: 81 mg Documented by: [id number] Bupropion HCl (Wellbutrin-Xl) 300 mg PO QAM [facility] Stop: 05/24/19 08:59 Last Admin: 04/24/19 08:42 Dose: 300 mg Documented by: [id number] Acetaminophen (Ofirmev) 1,000 mg in 100 mls @ 400 mls/hr IV Q8H PRN PRN Reason: MILD Pain Rating 1,2,3 Stop: 04/24/19 14:40 Last Infusion: 04/24/19 03:49 Dose: 0 mls/hr Documented by: [id number] Admin: 04/24/19 03:12 Dose: 400 mls/hr Documented by: [id number] Sodium Chloride (Nss 1000ml) 1,000 mls @ 150 mls/hr IV .Q6H40M [facility] Stop: 05/23/19 14:40 Last Infusion: 04/24/19 05:18 Dose: 150 mls/hr Documented by: [id number] Infusion: 04/24/19 03:49 Dose: 150 mls/hr Documented by: [id number] Infusion: 04/24/19 02:14 Dose: 0 mls/hr Documented by: [id number] Admin: 02/04/20 02:14 Dose: 150 mls/hr Documented by: [id number] Infusion: 04/24/19 01:10 Dose: 150 mls/hr Documented by: [id number] Admin: 04/23/19 18:29 Dose: 150 mls/hr Documented by: [id number] Insulin Aspart (Novolog Flexpen) 0 units SC ACHS [facility] Stop: 05/23/19 16:29 Last Admin: 04/24/19 08:46 Dose: 9 units Documented by: [id number] Cosigned by: [id number] Admin: 04/23/19 20:55 Dose: Not Given Documented by: [id number] Cosigned by: [id number] Admin: 04/23/19 18:27 Dose: 2 units Documented by: [id number] Cosigned by: [id number] Insulin Glargine (Lantus Solostar Pen) 0 - 19 units SC BID [facility] Stop: 05/23/19 20:59 Last Admin: 04/24/19 08:46 Dose: 9 units Documented by: [id number] Cosigned by: [id number] Admin: 04/23/19 20:56 Dose: 9 units Documented by: [id number] Cosigned by: [id number] Metoprolol Succinate (Toprol Xl) 25 mg PO QAM [facility] Stop: 05/24/19 08:59 Last Admin: 04/24/19 08:41 Dose: 25 mg Documented by: [id number] Multivitamins/Minerals (Multivitamin W/ Minerals Tab) 1 tab PO BID [facility] Stop: 05/23/19 20:59 Last Admin: 04/24/19 08:41 Dose: 1 tab Documented by: [id number] Admin: 04/23/19 20:53 Dose: 1 tab Documented by: [id number] Pantoprazole Sodium (Protonix) 40 mg PO QAM [facility] Stop: 05/24/19 08:59 Last Admin: 04/24/19 08:41 Dose: 40 mg Documented by: [id number] Polyethylene Glycol (Miralax Powder Packet) 17 gm PO Q6 [facility] Stop: 05/24/19 05:59 Last Admin: 04/24/19 05:18 Dose: 17 gm Documented by: [id number] Potassium Chloride (Klor-Con M20) 20 meq PO QAM [facility] Stop: 05/24/19 08:59 Last Admin: 04/24/19 08:40 Dose: 20 meq Documented by: [id number] Rosuvastatin Calcium (Crestor) 40 mg PO QPM [facility] Stop: 05/23/19 20:59 Last Admin: 04/23/19 20:53 Dose: 40 mg Documented by: [id number] Senna/Docusate Sodium (Senokot S) 2 tab PO HS [facility] Stop: 05/23/19 20:59 Last Admin: 04/23/19 20:54 Dose: 2 tab Documented by: [id number] Tramadol HCl (Ultram) 50 - 100 mg PO Q4H PRN PRN Reason: Moderate-Severe Pain Stop: 05/23/19 14:40 Last Admin: 04/23/19 16:25 Dose: 100 mg Documented by: [id number] Vitamin B Complex (Vitamin B Complex) 1 tab PO DAILY [facility] Stop: 05/24/19 08:59 Last Admin: 04/24/19 08:41 Dose: 1 tab Documented by: [id number] Discontinued Medications Bacitracin (Bacitracin) Confirm Administered Dose 50,000 units .ROUTE .STK-MED ONE Stop: 04/23/19 10:11 Last Admin: 04/23/19 11:02 Dose: 50,000 units Documented by: [id number] Bupivacaine HCl/Epinephrine Bitart (Bupivacaine 0.25%-Epi [id number]) Confirm Administered Dose 30 ml .ROUTE .STK-MED ONE Stop: 04/23/19 10:11 Last Admin: 04/23/19 11:02 Dose: 30 ml Documented by: [id number] Fentanyl Citrate (Fentanyl Citrate) 50 mcg IV Q5M PRN PRN Reason: PACU Use Only-Pain Stop: 04/23/19 14:36 Last Admin: 04/23/19 13:51 Dose: 50 mcg Documented by: [id number] Admin: 04/23/19 13:46 Dose: 50 mcg Documented by: [id number] Admin: 04/23/19 13:41 Dose: 50 mcg Documented by: [id number] Admin: 04/23/19 13:36 Dose: 50 mcg Documented by: [id number] Gabapentin (Neurontin) 300 mg PO PREOP [facility] Stop: 04/23/19 18:00 Last Admin: 04/23/19 08:52 Dose: 300 mg Documented by: [id number] Clindamycin Phosphate (Cleocin) 600 mg in 54 mls @ 100 mls/hr IV PREOP [facility] Stop: 04/24/19 05:59 Last Infusion: 04/24/19 00:17 Dose: 0 mls/hr Documented by: [id number] Admin: 04/23/19 10:19 Dose: 100 mls/hr Documented by: [id number] Lactated Ringer's (Lr) 1,000 mls @ 15 mls/hr IV .Q24H [facility] Stop: 04/24/19 05:59 Last Infusion: 04/23/19 10:19 Dose: 0 mls/hr Documented by: [id number] Admin: 04/23/19 08:36 Dose: 15 mls/hr Documented by: [id number] Clindamycin Phosphate 600 mg/ (Dextrose) 54 mls @ 100 mls/hr IV Q8H [facility] Stop: 04/24/19 03:33 Last Infusion: 04/24/19 03:33 Dose: 0 mls/hr Documented by: [id number] Admin: 04/24/19 02:14 Dose: 100 mls/hr Documented by: [id number] Infusion: 04/23/19 20:50 Dose: 0 mls/hr Documented by: [id number] Admin: 04/23/19 18:42 Dose: 100 mls/hr Documented by: [id number] Sodium Chloride (Nss 1000ml) 500 mls @ 999 mls/hr IV .Q31M ONE Stop: 04/23/19 17:56 Last Infusion: 04/23/19 18:38 Dose: 0 mls/hr Documented by: [id number] Admin: 04/23/19 17:33 Dose: 999 mls/hr Documented by: [id number] Miscellaneous (Floseal Hemostatic Matrix 10ml) 12 ml TOP ONCE ONE Stop: 04/23/19 13:04 Last Admin: 04/23/19 13:03 Dose: 12 ml Documented by: [id number]
[2019-04-24] MEDS: HYDROmorphone INJ 0.5 MG/0.5 ML SYR IV PRN (09:41)
--- NOTE | 2019-04-24 09:41 | Orthopedic Progress Note ---
Date of Service April 24, 2019 Assessment & Plan (1) Neurogenic claudication due to lumbar spinal stenosis: This time will initiate physical therapy monitor his ERMIAS output hopefully discharge home later half of this week. Present on Admission?: Yes Subjective Back pain is controlled no leg pain. Physical Exam Physical Exam: Patient has good strength testing. Results & Data ([facility]) Vital Signs (Past 12 Hours) Vital Signs Temp Pulse Resp BP BP Pulse Ox 04/24/19 07:33 36.4 C L 94 H 16 103/65 96 04/24/19 05:17 103/65 04/24/19 03:09 36.3 C L 89 16 106/63 96 04/24/19 01:27 118/74 04/23/19 23:30 98/48 L 04/23/19 23:27 114/40 L 04/23/19 23:14 36.7 C 75 16 96
[2019-04-24] MEDS: OXYCODONE HCL IR 5 MG TAB (IMMEDIATE RELEASE) PO PRN ×2 (16:54→22:08)
[2019-04-24] MEDS: DOCUSATE SODIUM/SENNA 50/8.6MG TAB PO SCH (22:07)
[2019-04-24] MEDS: ROSUVASTATIN CALCIUM 20 MG TAB PO SCH (22:07)
[2019-04-24] MEDS: ASPIRIN 81 MG ECTAB PO SCH (22:07)
[2019-04-25] MEDS: HYDROmorphone INJ 0.5 MG/0.5 ML SYR IV PRN (00:08)
[2019-04-25] MEDS: SODIUM CHLORIDE 0.9% 1000ML 1,000 ML IV SCH (05:30)
[2019-04-25] MEDS: POLYETHYLENE (MIRALAX) 17 GM PACK PO SCH ×4 (05:30→23:29)
--- NOTE | 2019-04-25 08:51 | Hospitalist Progress Note ---
Date of Service April 25, 2019 Assessment & Plan (1) Status post lumbar surgery: Post op day# 2 S/P L2-S1 decompression and fusion by EBL #600ml; ERMIAS drain 800ml pain/wound management per ortho activity and therapy as directed by ortho DVT prophylaxis per ortho encourage incentive spirometry (2) Anemia: 11.0 and 33.1 today, pre op Hgb: 14.6 2/2 acute blood loss from surgery monitor H/H hemodynamically stable (3) CAD (coronary artery disease): S/P stent, CABG x 3 No CP or SOB continue ASA, metoprolol and statin (4) Hypertension: BP continues to be on low side Pt eating and drinking well Obtain h/h and bmp, if okay d/c IVF continue to Hold lisinopril, lasix and reassess (5) Diabetes mellitus, type 2: A1c: 7.5 in 04/06/2019 Hold Jardiance, metformin Diabetic diet, monitor BSGs Basal bolus insulin per protocol BSG 141 (6) Hyperlipidemia: Continue rosuvastatin (7) CKD (chronic kidney disease), stage III: Baseline Cr~1.4, bun/cr 24 and 1.11 yesterday Monitor renal functions Avoid nephrotoxic agents when possible (8) Sleep apnea: CPAP HS and during day when napping to prevent lethargy (9) Depression: Continue Wellbutrin, mood stable (10) GERD (gastroesophageal reflux disease): Continue PPI DVT Prophylaxis SCD per ortho Disposition per primary service Follows with Mandy Moore PA-C at [facility] for routine care Pt was seen and care coordinated with Dr Kemp. Please see addendum. Thank you for this consultation. We will follow the patient with you during their hospital stay. You can reach a member of the [facility] Hospitalist Team 11/10 via pager @ [phone]. Supervising Physician Co-Signing Physician Notes I have seen and examined the patient with physician appeals assistant and agree with the assessment and plan as above and would like to comment that this is a 73 year old Male who appears to be doing well post-operatively On exam: general: no acute distress, sitting up in chair, patient denies symptoms on review of systems, no complaints Lungs: clear to auscultation bilaterally Heart: regular rate abdomen: soft, nontender, positive bowel sounds Back: ERMIAS drain present Extremities: able to move extremities ASSESSMENT/PLANS/RECOMMENDATIONS STATUS POST LUMBAR SURGERY ANEMIA DUE TO ACUTE BLOOD LOSS TYPE 2 DIABETES MELLITUS WITH CHRONIC KIDNEY DISEASE STAGE 3 HISTORY OF CORONARY ARTERY DISEASE -hospitalist medicine following as consult, patient is post-operative lumbar surgery and today is post-operative day number 2. blood pressures are still somewhat low normotensive. continue to hold lisinopril and diuretics. metoprolol as half of patient's home dose is restarted on 04/25/2019. heart rates are controlled. ERMIAS drain remains in place. blood counts currently do no require any blood transfusion. routine monitoring of labs including renal function. blood sugars are okay for now. further ERMIAS drain management as per orthopedics. patient reports he is doing okay with therapy so far Subjective Pt seen and examined in room 310-1. S/P Lumbar Decompression and fusion L2-S1 POD #2 by . Sitting up in bedside chair. Already has been up and walking this morning. Blood pressure remains soft but denies any dizziness or lightheadedness. Further denies chest pain, sob, n/v/d. NO BM and denies flatus. Complains of feeling bloated. No difficulty urinating, dysuria, increased freq. Complains of incisional back pain 5/10, but not radicular sx. Review of Systems Review of Systems: All systems reviewed & are unremarkable except as noted in HPI & below Physical Exam Physical Exam: Gen: WD/WN, M, sitting up in bedside chair, NAD, A&O x3 HEENT: Normocephalic, atraumatic, conjunctivae moist, sclerae anicteric, mucous membranes moist. Lung: Clear to Auscultation bilaterally, no wheezes/rales/rhonchi Heart: Regular rate, regular rhythm, no murmurs, rubs, or gallops Abdomen: Soft, protuberant abd, NT, +BS x 4 Extremities: No edema , teds in place Skin: Warm, no rash, negative turgor. Lumbar dressing CDI Results & Data ([facility]) Vital Signs (Past 12 Hours) Vital Signs Temp Pulse Resp BP BP Pulse Ox 04/25/19 07:12 36.9 C 92 H 18 100/63 97 04/24/19 23:03 36.3 C L 93 H 16 99/65 L 96 Medications Administered Aspirin (Ecotrin Ectab) 81 mg PO QPM [facility] Stop: 05/23/19 20:59 Last Admin: 04/24/19 22:07 Dose: 81 mg Documented by: [id number] Admin: 04/23/19 20:53 Dose: 81 mg Documented by: [id number] Bupropion HCl (Wellbutrin-Xl) 300 mg PO QAM [facility] Stop: 05/24/19 08:59 Last Admin: 04/24/19 08:42 Dose: 300 mg Documented by: [id number] Hydromorphone HCl (Dilaudid) 0.5 mg IV Q3H PRN PRN Reason: moderate pain (scale 4-6) Stop: 05/07/19 14:40 Last Admin: 04/25/19 00:08 Dose: 0.5 mg Documented by: [id number] Admin: 04/24/19 09:41 Dose: 0.5 mg Documented by: [id number] Sodium Chloride (Nss 1000ml) 1,000 mls @ 125 mls/hr IV .Q8H [facility] Stop: 05/24/19 12:59 Last Admin: 04/25/19 05:30 Dose: 125 mls/hr Documented by: [id number] Infusion: 04/25/19 05:30 Dose: 125 mls/hr Documented by: [id number] Admin: 04/24/19 22:14 Dose: 125 mls/hr Documented by: [id number] Infusion: 04/24/19 20:59 Dose: 125 mls/hr Documented by: [id number] Infusion: 04/24/19 16:31 Dose: 125 mls/hr Documented by: [id number] Admin: 04/24/19 12:59 Dose: 125 mls/hr Documented by: [id number] Insulin Aspart (Novolog Flexpen) 0 units SC ACHS [facility] Stop: 05/23/19 16:29 Last Admin: 04/24/19 21:34 Dose: Not Given Documented by: [id number] Cosigned by: [id number] Admin: 04/24/19 18:31 Dose: 5 units Documented by: [id number] Cosigned by: [id number] Admin: 04/24/19 12:55 Dose: 6 units Documented by: [id number] Cosigned by: [id number] Admin: 04/24/19 08:46 Dose: 9 units Documented by: [id number] Cosigned by: [id number] Admin: 04/23/19 20:55 Dose: Not Given Documented by: [id number] Cosigned by: [id number] Admin: 04/23/19 18:27 Dose: 2 units Documented by: [id number] Cosigned by: [id number] Insulin Glargine (Lantus Solostar Pen) 0 - 19 units SC BID [facility] Stop: 05/23/19 20:59 Last Admin: 04/24/19 22:10 Dose: 9 units Documented by: [id number] Cosigned by: [id number] Admin: 04/24/19 08:46 Dose: 9 units Documented by: [id number] Cosigned by: [id number] Admin: 04/23/19 20:56 Dose: 9 units Documented by: [id number] Cosigned by: [id number] Multivitamins/Minerals (Multivitamin W/ Minerals Tab) 1 tab PO BID [facility] Stop: 05/23/19 20:59 Last Admin: 04/24/19 22:07 Dose: 1 tab Documented by: [id number] Admin: 04/24/19 08:41 Dose: 1 tab Documented by: [id number] Admin: 04/23/19 20:53 Dose: 1 tab Documented by: [id number] Oxycodone HCl (Roxicodone Immediate Rel) 5 - 10 mg PO Q4H PRN PRN Reason: Moderate-Severe Pain Stop: 05/07/19 14:40 Last Admin: 04/24/19 22:08 Dose: 10 mg Documented by: [id number] Admin: 04/24/19 16:54 Dose: 10 mg Documented by: [id number] Pantoprazole Sodium (Protonix) 40 mg PO QAM [facility] Stop: 05/24/19 08:59 Last Admin: 04/24/19 08:41 Dose: 40 mg Documented by: [id number] Polyethylene Glycol (Miralax Powder Packet) 17 gm PO Q6 [facility] Stop: 05/24/19 05:59 Last Admin: 04/25/19 05:30 Dose: 17 gm Documented by: [id number] Admin: 04/24/19 23:58 Dose: 17 gm Documented by: [id number] Admin: 04/24/19 17:28 Dose: 17 gm Documented by: [id number] Admin: 04/24/19 12:53 Dose: 17 gm Documented by: [id number] Admin: 04/24/19 05:18 Dose: 17 gm Documented by: [id number] Potassium Chloride (Klor-Con M20) 20 meq PO QAM [facility] Stop: 05/24/19 08:59 Last Admin: 04/24/19 08:40 Dose: 20 meq Documented by: [id number] Rosuvastatin Calcium (Crestor) 40 mg PO QPM [facility] Stop: 05/23/19 20:59 Last Admin: 04/24/19 22:07 Dose: 40 mg Documented by: [id number] Admin: 04/23/19 20:53 Dose: 40 mg Documented by: [id number] Senna/Docusate Sodium (Senokot S) 2 tab PO HS [facility] Stop: 05/23/19 20:59 Last Admin: 04/24/19 22:07 Dose: 2 tab Documented by: [id number] Admin: 04/23/19 20:54 Dose: 2 tab Documented by: [id number] Tramadol HCl (Ultram) 50 - 100 mg PO Q4H PRN PRN Reason: Moderate-Severe Pain Stop: 05/23/19 14:40 Last Admin: 04/24/19 08:55 Dose: 100 mg Documented by: [id number] Admin: 04/23/19 16:25 Dose: 100 mg Documented by: [id number] Vitamin B Complex (Vitamin B Complex) 1 tab PO DAILY [facility] Stop: 05/24/19 08:59 Last Admin: 04/24/19 08:41 Dose: 1 tab Documented by: [id number] Discontinued Medications Bacitracin (Bacitracin) Confirm Administered Dose 50,000 units .ROUTE .STK-MED ONE Stop: 04/23/19 10:11 Last Admin: 04/23/19 11:02 Dose: 50,000 units Documented by: [id number] Bupivacaine HCl/Epinephrine Bitart (Bupivacaine 0.25%-Epi [id number]) Confirm Administered Dose 30 ml .ROUTE .STK-MED ONE Stop: 04/23/19 10:11 Last Admin: 04/23/19 11:02 Dose: 30 ml Documented by: [id number] Fentanyl Citrate (Fentanyl Citrate) 50 mcg IV Q5M PRN PRN Reason: PACU Use Only-Pain Stop: 04/23/19 14:36 Last Admin: 04/23/19 13:51 Dose: 50 mcg Documented by: [id number] Admin: 04/23/19 13:46 Dose: 50 mcg Documented by: [id number] Admin: 04/23/19 13:41 Dose: 50 mcg Documented by: [id number] Admin: 04/23/19 13:36 Dose: 50 mcg Documented by: [id number] Gabapentin (Neurontin) 300 mg PO PREOP [facility] Stop: 04/23/19 18:00 Last Admin: 04/23/19 08:52 Dose: 300 mg Documented by: [id number] Clindamycin Phosphate (Cleocin) 600 mg in 54 mls @ 100 mls/hr IV PREOP [facility] Stop: 04/24/19 05:59 Last Infusion: 04/24/19 00:17 Dose: 0 mls/hr Documented by: [id number] Admin: 04/23/19 10:19 Dose: 100 mls/hr Documented by: [id number] Lactated Ringer's (Lr) 1,000 mls @ 15 mls/hr IV .Q24H [facility] Stop: 04/24/19 05:59 Last Infusion: 04/23/19 10:19 Dose: 0 mls/hr Documented by: [id number] Admin: 04/23/19 08:36 Dose: 15 mls/hr Documented by: [id number] Acetaminophen (Ofirmev) 1,000 mg in 100 mls @ 400 mls/hr IV Q8H PRN PRN Reason: MILD Pain Rating 1,2,3 Stop: 04/24/19 14:40 Last Infusion: 04/24/19 03:49 Dose: 0 mls/hr Documented by: [id number] Admin: 04/24/19 03:12 Dose: 400 mls/hr Documented by: [id number] Clindamycin Phosphate 600 mg/ (Dextrose) 54 mls @ 100 mls/hr IV Q8H [facility] Stop: 04/24/19 03:33 Last Infusion: 04/24/19 03:33 Dose: 0 mls/hr Documented by: [id number] Admin: 04/24/19 02:14 Dose: 100 mls/hr Documented by: [id number] Infusion: 04/23/19 20:50 Dose: 0 mls/hr Documented by: [id number] Admin: 04/23/19 18:42 Dose: 100 mls/hr Documented by: [id number] Sodium Chloride (Nss 1000ml) 1,000 mls @ 150 mls/hr IV .Q6H40M [facility] Stop: 05/23/19 14:40 Last Infusion: 04/24/19 20:08 Dose: 0 mls/hr Documented by: [id number] Admin: 04/24/19 09:24 Dose: Not Given Documented by: [id number] Infusion: 04/24/19 09:22 Dose: 150 mls/hr Documented by: [id number] Infusion: 04/24/19 05:18 Dose: 150 mls/hr Documented by: [id number] Infusion: 04/24/19 03:49 Dose: 150 mls/hr Documented by: [id number] Infusion: 04/24/19 02:14 Dose: 0 mls/hr Documented by: [id number] Admin: 04/24/19 02:14 Dose: 150 mls/hr Documented by: [id number] Infusion: 04/24/19 01:10 Dose: 150 mls/hr Documented by: [id number] Admin: 04/23/19 18:29 Dose: 150 mls/hr Documented by: [id number] Sodium Chloride (Nss 1000ml) 500 mls @ 999 mls/hr IV .Q31M ONE Stop: 04/23/19 17:56 Last Infusion: 04/23/19 18:38 Dose: 0 mls/hr Documented by: [id number] Admin: 04/23/19 17:33 Dose: 999 mls/hr Documented by: [id number] Metoprolol Succinate (Toprol Xl) 25 mg PO QAM [facility] Stop: 05/24/19 08:59 Last Admin: 04/24/19 08:41 Dose: 25 mg Documented by: [id number] Miscellaneous (Floseal Hemostatic Matrix 10ml) 12 ml TOP ONCE ONE Stop: 04/23/19 13:04 Last Admin: 04/23/19 13:03 Dose: 12 ml Documented by: [id number]
[2019-04-25] MEDS: POTASSIUM CHLORIDE 20 MEQ TABCR PO SCH (08:53)
[2019-04-25] MEDS: CEROVITE ADV FORMULA TAB PO SCH ×2 (08:54→20:48)
[2019-04-25] MEDS: BuPROPion XL 300 MG TABCR PO SCH (08:55)
[2019-04-25] MEDS: METOPROLOL SUCC 25MG EXT REL TAB PO SCH (08:56)
[2019-04-25] MEDS: PANTOprazole 40 MG TAB PO SCH (08:56)
[2019-04-25] MEDS: VITAMIN B COMPLEX TAB PO SCH (08:57)
[2019-04-25] MEDS: OXYCODONE HCL IR 5 MG TAB (IMMEDIATE RELEASE) PO PRN ×2 (08:57→18:16)
[2019-04-25] MEDS: INSULIN GLARGINE SOLOSTAR 100 UNITS/ML 3 ML PEN SC SCH ×2 (09:03→20:53)
[2019-04-25] MEDS: INSULIN ASPART 100 UNITS/ML 3 ML PEN SC SCH ×4 (09:03→20:51)
[2019-04-25 09:17] LABS: Hematocrit (blood only) 31.4 % (42-52); Hemoglobin 10.7 g/dL (14.0-18.0)
[2019-04-25 09:41] LABS: BUN Creatinine Ratio 13.2 (10-20); Calcium 8.3 mg/dl (8.5-10.1); Creatinine Clr Calc Pharmacy 77.4 ml/min; Est GFR (African American) 73.5; Est GFR (Non-African American) 63.4; Potassium 4.1 mmol/L (3.5-5.1)
--- NOTE | 2019-04-25 11:12 | Orthopedic Progress Note ---
Date of Service April 25, 2019 Assessment & Plan (1) Neurogenic claudication due to lumbar spinal stenosis: At this time we will continue physical therapy monitor his ERMIAS output advance his bowel regiment hopefully discharge home the next day or so. Present on Admission?: Yes Subjective Patient's back pain is improving leg pain improved. Physical Exam Physical Exam: Patient is good strength testing ambulating halls. Results & Data ([facility]) Vital Signs (Past 12 Hours) Vital Signs Temp Pulse Resp BP Pulse Ox 04/25/19 07:12 36.9 C 92 H 18 100/63 97
[2019-04-25] MEDS: ASPIRIN 81 MG ECTAB PO SCH (20:47)
[2019-04-25] MEDS: DOCUSATE SODIUM/SENNA 50/8.6MG TAB PO SCH (20:47)
[2019-04-25] MEDS: ROSUVASTATIN CALCIUM 20 MG TAB PO SCH (20:47)
[2019-04-25] MEDS: MAGNESIUM HYDROXIDE SUSP 30 ML UDC PO PRN (23:32)
[2019-04-26] MEDS: OXYCODONE HCL IR 5 MG TAB (IMMEDIATE RELEASE) PO PRN (00:36)
[2019-04-26] MEDS: POLYETHYLENE (MIRALAX) 17 GM PACK PO SCH ×2 (06:21→12:24)
[2019-04-26] MEDS: MAGNESIUM HYDROXIDE SUSP 30 ML UDC PO PRN (07:42)
--- NOTE | 2019-04-26 08:45 | Orthopedic Progress Note ---
Date of Service April 26, 2019 Assessment & Plan (1) Neurogenic claudication due to lumbar spinal stenosis: This time continue physical therapy advance his bowel regiment anticipate discharge home tomorrow. Present on Admission?: Yes Subjective Back pain controlled leg pain improved no bowel movement at this time. Physical Exam Physical Exam: Patient is good strength testing is in a chair. Results & Data ([facility]) Vital Signs (Past 12 Hours) Vital Signs Temp Pulse Resp BP BP Pulse Ox 04/26/19 07:23 36.9 C 73 18 181/79 H 96 04/25/19 23:13 37.1 C 99 H 18 105/64 100
--- NOTE | 2019-04-26 08:47 | Hospitalist Progress Note ---
Date of Service April 26, 2019 Assessment & Plan (1) Status post lumbar surgery: -on this admission, patient had L2-S1 decompression and fusion by -ERMIAS drain management as per orthopedics -hospitalist consult ordered additional bowel regimen for patient -continue PT/OT (2) Anemia: ANEMIA DUE TO ACUTE BLOOD LOSS pre op Hgb: 14.6 post op Hgb 11 secondary to acute blood loss from surgery Hgb currently 10.7, no need for blood transfusion (3) CAD (coronary artery disease): HISTORY OF CORONARY ARTERY DISEASE -in the past S/P stent, CABG x 3 -continue ASA, metoprolol and statin (4) Hypertension: -resumed lisinopril and furosemide on 04/26/2019 based on blood pressures (5) Diabetes mellitus, type 2: TYPE 2 DIABETES MELLITUS WITH CHRONIC KIDNEY DISEASE STAGE 3 -HbA1c: 7.5 in 04/06/2019 -Hold Jardiance, metformin -Diabetic diet, monitor BSGs -insulin per protocol (6) CKD (chronic kidney disease), stage III: monitor renal function (7) Hyperlipidemia: Continue rosuvastatin (8) Sleep apnea: CPAP HS and during day when napping to prevent lethargy (9) Depression: Continue Wellbutrin, mood stable (10) GERD (gastroesophageal reflux disease): Continue PPI DVT Prophylaxis SCD per ortho Disposition per primary service Follows with Mandy Moore PA-C at [facility] for routine care Subjective No bowel movement since the surgery. no abdominal pain. ERMIAS drain to the back remains in place. no dizziness. no headache. no chest pain. no shortness of breath. Review of Systems Review of Systems: All systems reviewed & are unremarkable except as noted in HPI & below Physical Exam Constitutional: cooperative Eyes: PERRL, conjunctivae normal, anicteric sclerae EOM intact bilaterally ENMT: external ear and nose normal, oropharynx normal Neck: normal visual inspection Respiratory: normal respiratory effort, lungs clear to auscultation Cardiovascular: Rate/Rhythm: regular rate and regular rhythm Gastrointestinal (Abdomen): normal bowel sounds, soft, nontender, no hepatosplenomegaly Musculoskeletal: Head/Neck/Chest: normocephalic and head atraumatic Neurologic: PERRL, EOMI, accommodation nl, no face palsy, no dysarthria CN's II-XI intact bilaterally Psychiatric: A+Ox3, euthymic affect Results & Data ([facility]) Vital Signs (Past 12 Hours) Vital Signs Temp Pulse Resp BP BP Pulse Ox 04/26/19 07:23 36.9 C 73 18 181/79 H 96 04/25/19 23:13 37.1 C 99 H 18 105/64 100
[2019-04-26] MEDS ORDERED: lisinopriL 10 MG TAB PO SCH (09:00)
[2019-04-26] MEDS: CEROVITE ADV FORMULA TAB PO SCH ×2 (09:20→20:23)
[2019-04-26] MEDS: VITAMIN B COMPLEX TAB PO SCH (09:20)
[2019-04-26] MEDS: METOPROLOL SUCC 25MG EXT REL TAB PO SCH (09:20)
[2019-04-26] MEDS: PANTOprazole 40 MG TAB PO SCH (09:20)
[2019-04-26] MEDS: BuPROPion XL 300 MG TABCR PO SCH (09:20)
[2019-04-26] MEDS: MAGNESIUM HYDROXIDE SUSP 30 ML UDC PO ONE ×2 (09:23→11:09)
[2019-04-26] MEDS: FUROSEMIDE 40 MG TAB PO SCH (09:23)
[2019-04-26] MEDS: INSULIN GLARGINE SOLOSTAR 100 UNITS/ML 3 ML PEN SC SCH ×2 (09:25→20:44)
[2019-04-26] MEDS: INSULIN ASPART 100 UNITS/ML 3 ML PEN SC SCH ×4 (09:27→20:44)
[2019-04-26] MEDS ORDERED: MAGNESIUM HYDROXIDE SUSP 30 ML UDC ONE (11:08)
[2019-04-26] MEDS ORDERED: Nursing to Pharmacy Communication ONE (16:10)
[2019-04-26] MEDS: ROSUVASTATIN CALCIUM 20 MG TAB PO SCH (20:23)
[2019-04-26] MEDS: ASPIRIN 81 MG ECTAB PO SCH (20:23)
[2019-04-26] MEDS: DOCUSATE SODIUM/SENNA 50/8.6MG TAB PO SCH (20:23)
[2019-04-26] MEDS: ACETAMINOPHEN 500 MG TAB PO PRN (20:31)
--- NOTE | 2019-04-27 08:35 | Hospitalist Progress Note ---
Date of Service April 27, 2019 Assessment & Plan (1) Status post lumbar surgery: -on this admission, patient had L2-S1 decompression and fusion by -ERMIAS drain management as per orthopedics -continue PT/OT while inpatient -patient has made bowel movements as of 04/26/2019 (2) Anemia: ANEMIA DUE TO ACUTE BLOOD LOSS pre op Hgb: 14.6 post op Hgb 11 secondary to acute blood loss from surgery Hgb currently 10.7 as of 04/25/2019 (3) CAD (coronary artery disease): HISTORY OF CORONARY ARTERY DISEASE -in the past S/P stent, CABG x 3 -continue ASA, metoprolol and statin (4) Hypertension: -resumed furosemide on 04/26/2019 based on blood pressures -lisinopril may be resumed on 04/27/2019 based on blood pressures (5) Diabetes mellitus, type 2: TYPE 2 DIABETES MELLITUS WITH CHRONIC KIDNEY DISEASE STAGE 3 -HbA1c: 7.5 in 04/06/2019 -Hold Jardiance, metformin while in the hospital -Diabetic diet, monitor BSGs, and insulin per protocol while in the hospital -patient may resume home dose diabetes medication when discharged by orthopedic service (6) CKD (chronic kidney disease), stage III: stable (7) Hyperlipidemia: Continue rosuvastatin (8) Sleep apnea: CPAP HS and during day when napping (9) Depression: Continue Wellbutrin, mood stable (10) GERD (gastroesophageal reflux disease): Continue PPI DVT Prophylaxis SCD per ortho Disposition per primary service Follows with Mandy Moore PA-C at [facility] for routine care Subjective Patient made bowel movements yesterday. ERMIAS drain remains on the back. Patient denies dizziness or headache. no acute pain. no shortness of breath. no chest pain. no nausea. no vomiting Review of Systems Review of Systems: All systems reviewed & are unremarkable except as noted in HPI & below Physical Exam Constitutional: cooperative Eyes: PERRL, conjunctivae normal, anicteric sclerae EOM intact bilaterally ENMT: external ear and nose normal, oropharynx normal Neck: normal visual inspection Respiratory: normal respiratory effort, lungs clear to auscultation Cardiovascular: Rate/Rhythm: regular rate and regular rhythm Gastrointestinal (Abdomen): normal bowel sounds, soft, nontender, no hepatosplenomegaly Musculoskeletal: Head/Neck/Chest: normocephalic and head atraumatic ERMIAS drain to the back Neurologic: PERRL, EOMI, accommodation nl, no face palsy, no dysarthria CN's II-XI intact bilaterally Psychiatric: A+Ox3, euthymic affect Results & Data ([facility]) Vital Signs (Past 12 Hours) Vital Signs Temp Pulse Pulse Resp BP Pulse Ox 04/27/19 07:35 36.4 C L 89 17 114/80 98 04/26/19 23:20 36.2 C L 88 18 114/65 97
[2019-04-27] MEDS ORDERED: lisinopriL 10 MG TAB PO SCH (09:00)
[2019-04-27] MEDS: ACETAMINOPHEN 500 MG TAB PO PRN (09:17)
[2019-04-27] MEDS: FUROSEMIDE 40 MG TAB PO SCH (09:17)
[2019-04-27] MEDS: METOPROLOL SUCC 25MG EXT REL TAB PO SCH (09:17)
[2019-04-27] MEDS: VITAMIN B COMPLEX TAB PO SCH (09:17)
[2019-04-27] MEDS: PANTOprazole 40 MG TAB PO SCH (09:17)
[2019-04-27] MEDS: CEROVITE ADV FORMULA TAB PO SCH (09:17)
[2019-04-27] MEDS: BuPROPion XL 300 MG TABCR PO SCH (09:17)
[2019-04-27] MEDS: INSULIN GLARGINE SOLOSTAR 100 UNITS/ML 3 ML PEN SC SCH (09:18)
[2019-04-27] MEDS: INSULIN ASPART 100 UNITS/ML 3 ML PEN SC SCH ×2 (09:19→13:01)
--- NOTE | 2019-04-27 13:41 | Discharge Summary ---
Date of Service April 27, 2019 Admission HPI Per Admitting Provider Pt is 73 y/o M with PMH CAD s/p stent, CABG x 3, HTN, HLD, DM II, CKD III, depression, GERD, ECHO on CPAP, BPH seen in consultation for post op medical management s/p L2-S1 decompression and fusion today by . Post op pt reports tired after anesthesia. Currently reports back pain controlled and denies any LE pain or paresthesias. Reports BM yesterday. Current Corrigan catheter. Denies nausea, vomiting, CP, SOB. Denies fever/chills, diaphoresis, CALLE, dizziness, syncope, vision changes, neck pain, orthopnea, palpitations, cough, sore throat, choking, otalgia, rhinorrhea, abdominal pain, paresthesias, weakness, extremity edema, rashes, urinary symptoms. Principal Diagnosis Lumbar spinal stenosis with neurogenic claudication Discharge Data Allergies Allergy/AdvReac Type Severity Reaction Status Date / Time etodolac Allergy Unknown PAINFUL Verified 04/23/19 08:20 STOMACH IRRITATION Penicillins Allergy Unknown Rash Verified 04/23/19 08:20 Consultations 04/23/19 14:41 Consult Case Management - Discharge Planning Routine Consult Hospitalist Routine Procedures Performed Operation Date: 04/23/19 10:05 Actual Procedures p L2-S1 Decompression And Fusion, application of osteoamp, application of Infuse, Spinal Cord Monitoring - Tam Bailey, Ordered Studies 04/23/19 10:05 FL fluoroscopy <1hr Routine FL lumbar spine 2-3V Routine Hospital Course (1) Neurogenic claudication due to lumbar spinal stenosis: Patient underwent multilevel lumbar decompression fusion tolerated well second orthopedic for postoperative. Postop day 1 he was up and ambulating progressed to postop 2 and throughout the remainder the week his bowels finally worked well on postop day #3 ERMIAS drain decreased probably. Pain control. Subsequently discharged home. In date discharge good strength testing. Comfortable. Discharge orders instructions from the chart for further review. Total Time Total Time Spent Total Time Spent (In Minutes): 20 minutes Discharge Plan Discharge Items Patient Disposition: Home - Self-Care Reason For Visit: LUMBAR SPINAL STENOSIS W/NEUROGENIC CLAUDICATION Discharge Diagnosis: Lumbar spinal stenosis with neurogenic claudication Activity: As commented below Non-emergency contact: Primary Care Provider Call non-emergency contact if: you have any medication questions Follow-up/Referrals: PCP,NO [Physician] - Diet: Regular Addtl Attending Provider Instructions: ACTIVITY RECOMMENDATIONS: SELF CARE INSTRUCTIONS AFTER THORACIC/LUMBAR FUSIONS 1. You may walk to your tolerance. It is good exercise for your legs and back. Expect some back and intermittent leg aches and pains. 2. You may perform "counter-top" level activities (make a sandwich, heriberto with a project, etc.). 3. No bending or lifting of more than 10 pounds or back twisting of any nature (roll like a log when turning in bed). 4. You may ride in a car for 20-30 minutes at a time. No driving until after your first visit with your doctor. 5. Frequent changes of position and restricting sitting to 30 minutes at a time will help limit the amount of back spasms and stiffness you may experience. 6. You may discontinue the use of ambulatory aids (cane, crutches, etc.) once your strength and confidence allow. 7. You may stitcher standard machine the shower and let water strike your incision when you arrive home at least once daily. Do not take a tub bath, sit in a hot tub or go into a swimming pool until after your first recheck in the office. SPECIAL CARE INSTRUCTIONS: VERY IMPORTANT TO READ AND REVIEW A. Your surgical incision has been closed with a cosmetic suture under the skin that will dissolve in about 6 weeks. In 14 days, you can use a pair of clean scissors and cut the suture that is left outside of the skin at the ends of your incision. 1. The small skin tapes can be removed 7 days after surgery if they have not fallen off by that point. 2. You may keep the wound open to air as much as possible to promote healing after post-op day number 5 unless told otherwise by your doctor. 3. If you think the wound looks like it is becoming infected (redness or worsening drainage) and/or you are experiencing fever, chill or worsening back pain and muscle spasms, contact the office so that we may evaluate you as soon as possible. B. Complications are uncommon, but please contact us if you have any signs or symptoms of: 1. wound infection (fever higher than 102.5 degrees F, redness, separation of wound, drainage, or increasing pain from the incision) 2. blood clots in legs (pain, swelling, redness and warmth in legs) 3. urinary tract infection (fever higher than 102.5 degrees F, burning upon urination or increased frequency of urination) 4. nerve problems (inability to walk on your toes or heels, numbness, loss of bowel or bladder control) 5. any other symptoms that concern you C. Please call the office at if you have any concerns or questions about your operation or recovery. D. No smoking! Smoking drastically decreases the chance of a solid fusion. E. Do not take any anti-inflammatory medications (Indocin, Advil, Motrin, Aspirin, Naprosyn, etc.) as these may inhibit the chance of a solid fusion. Tylenol is okay to take for pain. MANAGING PAIN AFTER SPINAL SURGERY 1. Narcotic medication is intended for short-term use and will be provided for surgical pain. Surgical pain usually lasts for a period of 4-6 weeks. Narcotic medication includes Percocet, Vicodin, Darvocet, Tylenol #3 or Lortab. 2. Longer-term pain is more appropriately treated with non-narcotic medication such as Tylenol ES. 3. Muscle spasm is not appropriately treated with narcotics. Muscle relaxers such as Soma, Flexeril or Skelaxin can be used along with Tylenol ES. 4. Remember that we all live with some "aches and pains". This is not unusual or uncommon after an injury or as we get older. a. Back pain is expected and may include muscle spasms for 4 to 6 weeks a fter surgery. The pain should gradually improve. If the pain worsens for no apparent reason, please contact the office. b. Intermittent leg pain may also be experienced and should not be concerned about unless it worsens for no apparent reason. If so, please contact the office. 5. We will provide appropriate medication within the normal guidelines of their prescribed use. We will also be very cautious and aware of potential abuse and extended duration of patients' medication needs. a. Pain medications are for your comfort and to assist with sleep and rest so that the tissue can heal. They are not provided in order to return to normal activity and should not be used through the day. To do so or worsening pain at night can result from ongoing tissue damage and development of tolerance to the prescribed medicine. 6. Please allow 2-3 days to process refills. Prescriptions will not be mailed but must be picked up at the office. FOLLOW UP VISIT: Keep your scheduled follow-up appointment. Any questions, please call the office at . Pending Studies at Discharge: No Stand-Alone Forms: My [facility], Smoking Cessation Medications and DC Order Prescriptions: New tramadol 50 mg tablet 50 mg PO Q6H PRN (Reason: pain, moderate) Qty: 30 RF: 0 oxycodone 5 mg tablet 5 mg PO Q6H PRN (Reason: pain, severe) Qty: 30 RF: 0 Continued furosemide 40 mg Tablet 40 mg PO QAM RF: 0 coenzyme Q10 [Co Q-10] 10 mg Capsule 200 mg PO DAILY RF: 0 omeprazole 40 mg Capsule,Delayed Release(Dr/Ec) 40 mg PO QAM RF: 0 metformin 1,000 mg Tablet 1,000 mg PO BID RF: 0 lisinopril 10 mg Tablet 10 mg PO QAM RF: 0 nitroglycerin [Nitrostat] 0.4 mg Tablet, Sublingual 1 tab Sublingual UD RF: 0 aspirin 81 mg Tablet,Chewable 81 mg PO QPM RF: 0 multivitamin Capsule 1 cap PO QAM RF: 0 fluticasone propionate [Flonase Allergy Relief] 50 mcg/actuation Stuyvesant,Suspension 2 spray INTRANASAL DAILY PRN (Reason: Allergy Symptoms) RF: 0 vitamin B complex Capsule 1 cap PO DAILY RF: 0 rosuvastatin [Crestor] 40 mg Tablet 40 mg PO QPM RF: 0 PreserVision AREDS [id number] Tablet 1 tab PO BID RF: 0 Probiotic 3 billion cell Capsule 3,000 mmu cells PO QAM RF: 0 potassium chloride 20 mEq Tablet Extended Release 20 meq PO QAM RF: 0 Stool Softener 50 mg Capsule 200 mg PO HS RF: 0 metoprolol succinate 25 mg Tablet Extended Release 24 Hr 25 mg PO QAM RF: 0 bupropion HCl 300 mg Tablet Extended Release 24 Hr 300 mg PO QAM RF: 0 sennosides 8.6 mg Capsule 17.2 mg PO HS RF: 0 Jardiance 10 mg Tablet 10 mg PO QAM RF: 0 Discharge Orders: Discharge Order (Routine); Ordered 04/27/19 Ordered By: Tam Cm/Other Patient Handouts: Surgery Prevent DVT After, ED Stockings Jp Admission Data Admit Date/Time: 04/23/19 13:46 Attending Provider: Tam Bailey Admit Provider: Tam Bailey Primary Care Provider: Mandy Moore Other Providers: Conrado Lee ; Tam Bailey ; Jefferson Kemp Other Interventions: Discharge Summary Assessment (RN) Last Done: 04/27/19 11:29
== END 2019-04-27 13:50 | disposition home or self-care (01) | DRG 454 ==
LOC: ASU 07:49 → 3E 13:46 → SUATTDRO 13:46

== ENCOUNTER 2019-11-21 06:35 | Inpatient (IN) ==
--- NOTE | 2019-10-29 11:57 | PAT Medication Instructions ---
Medication Instructions Date of Service October 29, 2019 Home Medications PreserVision AREDS 1 tab PO QAM Probiotic 3,000 mmu cells PO QAM aspirin 81 mg PO HS coenzyme Q10 [Co Q-10] 200 mg PO QAM fluticasone propionate [Flonase Allergy Relief] 2 spray INTRANASAL DAILY PRN furosemide 40 mg PO QAM lisinopril 2.5 mg PO QAM metformin 500 mg PO BID multivitamin 1 cap PO QAM nitroglycerin [Nitrostat] 1 tab SUBLINGUAL UD omeprazole 40 mg PO QAM potassium chloride 10 meq PO BID rosuvastatin [Crestor] 40 mg PO HS vitamin B complex 1 cap PO QAM Jardiance 10 mg PO QAM bupropion HCl 300 mg PO QAM metoprolol succinate 25 mg PO QAM cholecalciferol [Vitamin D3] 50 mcg PO QAM clobetasol-emollient 1 applic TOPICAL BID PRN clotrimazole-betamethasone 1 applic TOPICAL BID PRN ibuprofen 200 - 400 mg PO Q6H PRN linaclotide [Linzess] 72 mcg PO QAM ASK your surgeon for instructions ibuprofen 200 - 400 mg PO Q6H PRN STOP taking 2 weeks before surgery If surgery is within 2 weeks, stop taking as soon as possible. PreserVision AREDS 1 tab PO QAM coenzyme Q10 [Co Q-10] 200 mg PO QAM STOP taking 24 hours before surgery clobetasol-emollient 1 applic TOPICAL BID PRN clotrimazole-betamethasone 1 applic TOPICAL BID PRN DO NOT take the morning of surgery Probiotic 3,000 mmu cells PO QAM furosemide 40 mg PO QAM lisinopril 2.5 mg PO QAM metformin 500 mg PO BID multivitamin 1 cap PO QAM potassium chloride 10 meq PO BID vitamin B complex 1 cap PO QAM Jardiance 10 mg PO QAM cholecalciferol [Vitamin D3] 50 mcg PO QAM linaclotide [Linzess] 72 mcg PO QAM Take morning of surgery With a small sip of water, OTHERWISE NOTHING TO EAT OR DRINK AFTER MIDNIGHT: fluticasone propionate [Flonase Allergy Relief] 2 spray INTRANASAL DAILY PRN (if needed) nitroglycerin [Nitrostat] 1 tab SUBLINGUAL UD (if needed) omeprazole 40 mg PO QAM bupropion HCl 300 mg PO QAM metoprolol succinate 25 mg PO QAM Take evening before surgery aspirin 81 mg PO HS fluticasone propionate [Flonase Allergy Relief] 2 spray INTRANASAL DAILY PRN (if needed) metformin 500 mg PO BID nitroglycerin [Nitrostat] 1 tab SUBLINGUAL UD (if needed) potassium chloride 10 meq PO BID rosuvastatin [Crestor] 40 mg PO HS Other Notes If you have any questions please call us at [phone] or [phone] or [phone] or [phone]
--- NOTE | 2019-10-30 12:09 | Anesthesiology Consultation ---
Date of Service October 30, 2019 Assessment & Plan (1) Encounter for pre-operative examination: COVID Status: As of 10/29 assessment, patient denies travel to endemic area, known exposure/sick contacts, or symptoms of COVID19. Patient instructed that they and their household members must follow strict social distancing guidelines, wear a mask in public and avoid travel for 14 days prior to surgery. Preoperative COVID19 testing to be completed prior to surgery per surgeon's arra ngjb. Patient made aware to self-isolate as much as possible between COVID testing and surgery. Cardiology clearance done 10/25 @ [facility], note still pending in draft. Patient to see PCP for clearance one 11/01. Await note. Chart Review Chart Review: Acceptable Risk for Surgery (pending surgeon-ordered PCP clearance 11/01 and final cardio clearance) and Patient seen in Pre Admission Testing Consults Requested medical & cardiac Teaching & Discussion Instructed NPO after midnight before surgery, except medications with 15 cc of water. Medication instructions provided according to the PAT guidelines. History Surgery Operation Date: 11/21/19 07:30 Proposed Procedures p Left Reverse Total Shoulder Arthroplasty, Biceps Tenodesis, Distal Clavicle Excision - Twin Carlisle MD Height/Weight Height: 6 ft 2 in Weight: 111.13 kg Allergies Allergy/AdvReac Type Severity Reaction Status Date / Time etodolac Allergy Unknown PAINFUL Verified 10/23/19 08:17 STOMACH IRRITATION Penicillins Allergy Unknown Rash Verified 10/23/19 08:17 Medications Home Medications Medication Instructions Recorded Confirmed Last Taken PreserVision AREDS 1 tab PO QAM 03/08/18 10/23/19 04/16/19 Probiotic 3,000 mmu cells PO QAM 03/08/18 10/23/19 04/22/19 06:00 aspirin 81 mg PO HS 03/08/18 10/23/19 04/22/19 22:30 coenzyme Q10 [Co Q-10] 200 mg PO QAM 03/08/18 10/23/19 04/16/19 fluticasone propionate [Flonase 2 spray INTRANASAL DAILY PRN 03/08/18 10/23/19 04/22/19 05:00 Allergy Relief] furosemide 40 mg PO QAM 03/08/18 10/23/19 04/22/19 06:00 lisinopril 2.5 mg PO QAM 03/08/18 10/23/19 04/22/19 06:00 metformin 500 mg PO BID 03/08/18 10/23/19 04/22/19 22:30 multivitamin 1 cap PO QAM 03/08/18 10/23/19 04/22/19 06:00 nitroglycerin [Nitrostat] 1 tab SUBLINGUAL UD 03/08/18 10/23/19 Unknown omeprazole 40 mg PO QAM 03/08/18 10/23/19 04/23/19 06:00 potassium chloride 10 meq PO BID 03/08/18 10/23/19 04/22/19 06:00 rosuvastatin [Crestor] 40 mg PO HS 03/08/18 10/23/19 04/22/19 22:30 vitamin B complex 1 cap PO QAM 03/08/18 10/23/19 04/22/19 06:00 Jardiance 10 mg PO QAM 03/29/19 10/23/19 04/22/19 06:00 bupropion HCl 300 mg PO QAM 03/29/19 10/23/19 04/23/19 06:00 metoprolol succinate 25 mg PO QAM 03/29/19 10/23/19 04/23/19 06:00 cholecalciferol (vitamin D3) 50 mcg PO QAM 10/23/19 10/23/19 Unknown [Vitamin D3] clobetasol-emollient 1 applic TOPICAL BID PRN 10/23/19 10/23/19 Unknown clotrimazole-betamethasone 1 applic TOPICAL BID PRN 10/23/19 10/23/19 Unknown ibuprofen 200 - 400 mg PO Q6H PRN 10/23/19 10/23/19 Unknown linaclotide [Linzess] 72 mcg PO QAM 10/23/19 10/23/19 Unknown Past Medical History Medical History Anxiety Asthma Allergic CAD (coronary artery disease) s/p NM 2000 with stents x 2. Subsequent CABG x 3 "a few months later" Cervical radiculopathy CKD (chronic kidney disease), stage III F/U PCP Constipation Depression Diabetes mellitus, type 2 GERD (gastroesophageal reflux disease) Gum disease Pt reports sore gums Hyperlipidemia Hypertension Lumbar radiculopathy Numbness in buttocks and down LEs Myocardial Infarction 2000 Osteoarthritis Peripheral neuropathy Feet and hands Sleep apnea cpap, pt reports compliance Spinal stenosis, lumbar region with neurogenic claudication Exercise / Class Metabolic Activity II 4-5 Yardwork/Stairs/Walk up hill (Does a flight of 17 steps 2x per day at home without CP or SOB) Past Family History Family History Other Family history of cancer in father Past Surgical History Surgical History History of arthroscopy right and left shoulder History of carpal tunnel release right and left History of colonoscopy History of coronary artery bypass graft 2000, 3 vessels History of ear surgery as child History of esophagogastroduodenoscopy (EGD) History of lumbar surgery History of mandibular surgery 1970s fracture repair History of total knee replacement right and left Hx of cardiac cath 2000, SHYANNE x 2 Hx of foot surgery left foot and pins Hx of hand surgery repair of left thumb Hx of vasectomy and reversal Past Anesthesia History No Hx of Anesthesia Complications and No Family Hx of Anesthesia Complications History of PONV No Hx of PONV and No Hx of Motion Sickness Social History Smoking Status: Former smoker Do You Dip or Chew Tobacco: No Smoking End Date: QUIT 1993 Hx Alcohol Use: Yes Alcohol type: beer alcohol intake frequency: a few times a month Hx Substance Use: No substance use type: does not use Review of Systems Pt denies any recent chest pain, shortness of breath, palpitations, cough, fever, URI. + acid reflux/burping Physical Exam Vital Signs BP: 110/73 P: 85bpm SPO2: 95% RA T: 97.8 F R: 16 ENMT Mouth: + poor dentition; no dental restorations, no chipped teeth and no loose teeth Thyromental Distance: > or= 3.5 Finger Breadths (4) Mallampati Class: I Neck normal visual inspection; neck extension not limited Respiratory normal respiratory effort Auscultation: + crackles (Insp B/L bases) Cardiovascular Rate/Rhythm: regular rate and regular rhythm Heart Sounds: no murmur Vessels: + carotid bruit Extremities: no edema Testing Laboratory Results 10/30/19 12:28 10/30/19 12:28 PT 10.8 Seconds (9.0-12.0) 10/30/19 12:28 INR 1.0 (0.9-1.1) 10/30/19 12:28 APTT 33.4 Seconds (21.0-31.0) H 10/30/19 12:28 Hemoglobin A1c 7.0 % (4.5-5.6) H 10/30/19 12:28 Urine Color Yellow 10/30/19 Unknown Urine Appearance Clear (Clear) 10/30/19 Unknown Urine pH 5.0 (4.5-7.5) 10/30/19 Unknown Ur Specific Loco 1.016 (1.000-1.030) 10/30/19 Unknown Urine Protein Negative (Negative) 10/30/19 Unknown Urine Glucose (UA) 3+ (Negative) H 10/30/19 Unknown Urine Ketones Negative (Negative) 10/30/19 Unknown Urine Nitrite Negative (Negative) 10/30/19 Unknown Ur Leukocyte Esterase Negative (Negative) 10/30/19 Unknown Blood Type O Negative 10/30/19 12:28 Antibody Screen NEGATIVE 10/30/19 12:28 Electrocardiogram Date: 10/26/19 Sinus rhythm at 67 beats per minute with sinus arrhythmia with first-degree AV block. Anteroseptal infarct cited on or before 06/21/2008. Chest X-Ray Date: 04/06/19 IMPRESSION: 1. Cardiomegaly without radiographic evidence of congestive failure. 2. Left greater than right bibasilar airspace opacities likely represent scarring/atelectasis. Clinical correlation will be required. Stress Test Date: 04/19/19 Type: DSE Resting EF: 55-59% The stress echo was negative for inducible ischemia. Resting study: The mid posterior wall and basal inferior wall are hypokinetic at rest. Grade 1 diastolic dysfunction of the left ventricle. Mild aortic valve sclerosis is present. Mild mitral regurgitation is present. The aortic root is moderately enlarged at 4.6 cm. The ascending aorta is mildly enlarged at 4 cm. Compared to last available study, a sending aortic diameter has increased and resting inferior/posterior wall motion abnormalities present.
[2019-10-30 14:23] LABS: Basophils # (auto) 0.04 K/uL (0-0.2); Basophils % (auto) 0.6 %; Eosinophils # (auto) 0.33 K/uL (0-0.5); Eosinophils % (auto) 4.6 %; Hemoglobin 14.6 g/dL (14.0-18.0); Immature Granulocytes # (auto) 0.02 K/uL (0.00-0.02); Immature Granulocytes % (auto) 0.3 %; Lymphocytes # (auto) 1.59 K/uL (1.2-3.4); Lymphocytes % (auto) 22.1 %; Mean Corpuscular Hemoglobin 29.2 pg (25-34); Mean Corpuscular Hgb Conc 33.2 g/dL (32-36); Mean Platelet Volume 10.1 fL (7.4-10.4); Monocytes # (auto) 0.99 K/uL (0.11-0.59); Monocytes % (auto) 13.7 %; Neutrophils # (auto) 4.24 K/uL (1.4-6.5); Neutrophils % (auto) 58.7 %; Platelet Count 242 K/uL (130-400); RDW Coefficient of Variation 15.1 % (11.5-14.5); RDW Standard Deviation 48.1 fL (36.4-46.3); White Blood Count 7.21 K/uL (4.8-10.8)
[2019-10-30 14:26] LABS: Appearance Urine Clear (Clear); Bilirubin Urine Negative (Negative); Blood Urine Negative (Negative); Color Urine Yellow; Glucose Urine UA 3+ (Negative); Ketones Urine Negative (Negative); Leukocyte Esterase Urine Negative (Negative); Nitrite Urine Negative (Negative); Protein Urine Negative (Negative); Specific Gravity Urine 1.016 (1.000-1.030); Urobilinogen Urine Negative (Negative)
[2019-10-30 14:34] LABS: Albumin Level 3.8 gm/dl (3.4-5.0); BUN Creatinine Ratio 20.7 (10-20); Calcium 9.4 mg/dl (8.5-10.1); Creatinine Clr Calc Pharmacy 63.7 ml/min; Est GFR (African American) 58.9; Est GFR (Non-African American) 50.8
[2019-10-30 14:42] LABS: Partial Thromboplastin Ratio 1.2; Partial Thromboplastin Time 33.4 Seconds (21.0-31.0); Prothrombin Time 10.8 Seconds (9.0-12.0)
[2019-10-30 15:03] LABS: Estimated Average Glucose 154 mg/dl
--- NOTE | 2019-11-20 22:47 | History and Physical Report ---
DATE OF ADMISSION: 11/21/2019 CHIEF COMPLAINT: Chronic left shoulder weakness and pain. HISTORY OF PRESENT ILLNESS: This is a 74-year-old male patient of Dr. Carlisle'leanna complaining of chronic left shoulder weakness and pain. The patient has failed conservative treatment including arthroscopic surgery, intra-articular injections, [id number] anti-inflammatories and physical therapy. He has been diagnosed with left shoulder rotator cuff arthropathy and wishes to proceed with a left reverse total shoulder arthroplasty and distal clavicle excision. PAST MEDICAL HISTORY: Congestive heart failure, coronary artery disease status post an CT in 2000, sleep apnea with use of CPAP, anxiety, peripheral neuropathy, diabetes mellitus, osteoarthritis, spine problems, neck problems, upper back problems, sciatica, acid reflux, hiatal hernia. SOCIAL HISTORY: Nonsmoker and nondrinker. PAST SURGICAL HISTORY: Bilateral knee surgery, foot surgery. FAMILY HISTORY: Noncontributory. REVIEW OF SYSTEMS: Chronic left shoulder weakness and pain. Otherwise, denies any shortness of breath, chest pain, nausea, vomiting or any other joint complaints. MEDICATIONS: 1. Lisinopril 2.5 mg daily. 2. Temovate 0.05% topically twice daily to affected area. 3. Linzess 75 mcg 1 tablet daily. 4. Omeprazole 40 mg daily. 5. Fluticasone 60 mcg per actuation nasal inhaler 2 sprays every evening. 6. Glucophage 500 mg twice daily. 7. Metoprolol 25 mg daily. 8. Lotrisone 0.05% cream topically twice times daily to affected area. 9. Lasix 40 mg daily. 10. Potassium chloride 10 mEq twice daily. 11. Jardiance 10 mg daily. 12. Wellbutrin 300 mg daily. 13. Flexeril 5 mg 1 daily as needed. 14. Probiotic daily. 15. Crestor 40 mg daily. 16. Gabapentin 300 mg 3 times daily. 17. Multivitamin daily. 18. Nitrostat 0.4 mg as needed. 19. Aspirin 81 mg daily. 20. Docusate sodium stool softener as needed. 21. Vitamin D2 2000 units daily. 22. Vitamin B complex daily. 23. CoQ10 daily. ALLERGIES: PENICILLIN, WHICH CAUSES A RASH. PHYSICAL EXAMINATION: GENERAL: Well-developed, well-nourished 74-year-old male in no acute distress. He is alert and oriented x3 and pleasant. HEENT: Normocephalic, atraumatic. Extraocular motions are intact. Pupils are equal and reactive to light. HEART: He has some tachycardia with PVCs. LUNGS: Clear. ABDOMEN: Soft, nontender, bowel sounds present. EXTREMITIES: Left shoulder, he has active range of motion of 0-160. Passive range of motion is full. He has 3+/5 strength globally with pain and crepitation. He has catching with range of motion. Neurologically and neurovascularly, he is intact in the left upper extremity. DIAGNOSES: Left shoulder rotator cuff arthropathy, congestive heart failure, coronary artery disease status post an CT in 2000, sleep apnea with the use of CPAP, anxiety, peripheral neuropathy, diabetes mellitus, osteoarthritis, spine problems, neck problems, upper back problems, sciatica, acid reflux, hiatal hernia. PLAN: The patient was advised of his diagnosis. Indications, risks, benefits, postop course have all been reviewed. The patient wished to proceed with a left reversed total shoulder arthroplasty and distal clavicle excision. Necessary consent forms, preoperative testing and clearances will be obtained.
[~2019-11-21 06:35] MED LIST changes: +ACETAMINOPHEN 500 MG TAB PO SCH; -CEFAZOLIN 2000MG 2,000 MG/15 ML SYR IV SCH; -CLINDAMYCIN 600 MG/54 ML BAG IV SCH; +CeleBREX 200 MG CAP PO SCH; +FAMOTIDINE 20 MG TAB PO SCH; +METOCLOPRAMIDE HCL 10 MG TABLET PO SCH; +VANCOMYCIN HCL 1,750 MG in SODIUM CHLORIDE 0.9% 500 ML IV SCH
[2019-11-21] MEDS ORDERED: ROPIVACAINE 0.5% 5 MG/ML 30 ML VIAL ONE (07:25)
[2019-11-21] MEDS ORDERED: EPINEPHrine INJ 1 MG/ML AMP ONE (07:25)
[2019-11-21] MEDS ORDERED: DEXAMETHASONE SOD INJ 4 MG/ML VIAL ONE ×2 (07:25→09:17)
[2019-11-21] MEDS ORDERED: ONDANSETRON INJ 2 MG/ML 2 ML VIAL ONE (09:17)
[2019-11-21] MEDS ORDERED: LIDOCAINE HCL 2% 2 ML VIAL/AMP(20MG/ML) INFIL ONE (09:17)
[2019-11-21] MEDS ORDERED: LARYING-O-JET KIT (LTA) ONE (09:17)
[2019-11-21] MEDS ORDERED: PROPOFOL IV EMULSION 10 MG/ML 20 ML VIAL IV ONE (09:17)
[2019-11-21] MEDS ORDERED: fentaNYL citrate 100 MCG/2 ML VIAL ONE (09:18)
[2019-11-21] MEDS ORDERED: MIDAZOLAM HCL 1 MG/ML 2ML VIAL ONE (09:18)
--- NOTE | 2019-11-21 09:47 | History & Physical Bridge Note ---
Date of Service November 21, 2019 History & Physical Bridge Note I have examined the patient, reviewed the History & Physical and in the interval since the performance of the History & Physical I have noted the following changes of clinical significance: no changes noted
[2019-11-21] MEDS ORDERED: ORTHO JOINT ANESTHETIC ONE (09:53)
[2019-11-21] MEDS ORDERED: BACITRACIN INJ 50,000 UNIT VIAL ONE (09:59)
[2019-11-21] MEDS ORDERED: ATROPINE SULFATE 0.1 MG/ML 10ML SYR IV PRN (11:20)
[2019-11-21] MEDS ORDERED: NALOXONE HCL 0.4 MG/1 ML VIAL/CARP IV PRN (11:20)
[2019-11-21] MEDS ORDERED: ONDANSETRON INJ 2 MG/ML 2 ML VIAL IV PRN (11:20)
[2019-11-21] MEDS ORDERED: HYDROmorphone INJ 1 MG/ML SYRINGE IV PRN (11:20)
[2019-11-21] MEDS ORDERED: LABETALOL HCL IV 5 MG/ML 20ML IV PRN (11:20)
[2019-11-21] MEDS ORDERED: FLUMAZENIL 0.1 MG/1 ML 10 ML VIAL IV PRN (11:20)
[2019-11-21] MEDS ORDERED: ePHEDrine sulfate 50 MG/ML AMP IV PRN (11:20)
[2019-11-21] MEDS ORDERED: fentaNYL citrate 100 MCG/2 ML VIAL IV PRN (11:20)
[2019-11-21] MEDS ORDERED: PROMETHAZINE HCL 12.5 MG in SODIUM CHLORIDE 0.9% 50 ML IV PRN (11:20)
[2019-11-21] MEDS ORDERED: SUCCINYLCHOLINE CHLORIDE 20 MG/ML 10 ML VIAL IV ONE (13:02)
[2019-11-21] MEDS ORDERED: CISATRACURIUM BESYLATE IV SOLN 2 MG/ML 10 ML VIAL IV ONE (13:02)
[2019-11-21] MEDS ORDERED: NEOSTIGMINE METHYLSULFATE 5 MG/5 ML SYR ONE (13:25)
[2019-11-21] MEDS ORDERED: GLYCOPYRROLATE 0.2 MG/ML VIAL ONE (13:25)
--- NOTE | 2019-11-21 13:41 | Post Operative Brief Note ---
Immediate Post Op Note v1 Date of Surgery November 21, 2019 Pre & Post Diagnosis Operation Date: 11/21/19 09:15 Pre-Op Diagnosis: Left Shoulder Rotator Cuff Arthropathy, failed rotator cuff repair with retained suture anchors and suture material, biceps tendinopathy, hypertrophic AC joint osteoarthritis. Post-Op Diagnosis: Same with heterotopic ossification AC joint. I identified the patient and participated in the time-out.: Yes Procedure Operation Date: 11/21/19 09:15 Actual Procedures Left Reverse Total Shoulder Arthroplasty, Biceps Tenodesis, Distal Clavicle Excision including excision heterotopic ossification AC joint capsule, removal of old hardware (multiple suture anchors and suture material (- Twin Carlisle MD Surgeon Twin Carlisle MD Grinding Supervisor GALINA Jimenez Estimated Blood Loss 40 Findings Consistent with Post-Op Diagnosis Specimens Humeral head and distal clavicle Drains Corrigan Catheter (inserted after induction of anesthesia, prior to start of procedure by Tali Case RN without difficulty) and Hemovac Drain (dual hemovac) Anesthesia Type General Regional Complications none Disposition Accompanied Patient To Recovery: No Overlapping Procedure I was immediately available: during the entire case.
--- NOTE | 2019-11-21 14:11 | Operative Report ---
Post Operative Report Pre & Post Diagnosis Operation Date: 11/21/19 09:15 Pre-Op Diagnosis: Left Shoulder Rotator Cuff Arthropathy, failed rotator cuff repair, retained hardware post rotator cuff repair, biceps tendinopathy, hypertrophic AC joint osteoarthritis Post-Op Diagnosis: Same, heterotopic bone AC joint capsule I identified the patient and participated in the time-out.: Yes Procedure Operation Date: 11/21/19 09:15 Actual Procedures p Left Reverse Total Shoulder Arthroplasty, Biceps Tenodesis, Distal Clavicle Excision including removal heterotopic bone AC joint capsule, removal hardware (suture anchors and suture material)- Twin Carlisle MD Surgeon Twin Carlisle MD Toppiece Chopper GALINA Jimenez Estimated Blood Loss 40 Findings Consistent with Post-Op Diagnosis Specimens Distal clavicle and humeral head Drains 2 Hemovac and a Corrigan catheter Anesthesia Type General Regional Complications none Disposition Accompanied Patient To Recovery: No Disposition: Recovery Room Indications 74 male with chronic bilateral shoulder pain history of rotator cuff repair surgeries failed rotator cuff repair surgeries. Large rotator cuff tears with r otator cuff arthropathy. Left shoulder specifically has hypertrophic AC joint osteoarthritis severe AC joint osteoarthritis some heterotopic bone superior AC joint capsule. Large irreparable rotator cuff tear with retained hardware humeral head proximal migration humeral head partial tearing releases subscapularis tendon with complete tear supraspinatus and infraspinatus tendons. Description of Procedure The patient was taken to the operating room and anesthetized under regional block and general anesthetic. The patient was positioned on the operating table in a 30 beachchair position with a towel roll under the medial border of the left scapula. The arm was draped free to be able to manipulate the shoulder as needed. The left upper extremity was prepped and draped in usual sterile fashion. Exam demonstrated subacromial crepitation forward elevation 160 degrees abduction 100 degrees external rotation 70 degrees, old transverse scar over acromion process superiorly. An anterior deltopectoral approach was performed. A longitudinal incision was made in the deltopectoral interval. The skin was incised sharply. Subcutaneous flaps were elevated off the fascia. The cephalic vein was not present and some small veins were cauterized as needed. The clavipectoral fascia was divided at the lateral margin of the conjoined tendon and extended up to the CA ligament. The following findings were noted there was scarred bursa over the rotator cuff there was a full-thickness rotator cuff tear supraspinatus and infraspinatus tendon with retraction. There was retained suture material at the greater tuberosity and suture anchors with no suture anchor pullout. There was scarred bursal tissue over the subscapularis and the upper 25% subscapularis was torn. Biceps tendon had significant tendinopathy in the bicipital groove area. There is scarred bursal tissue over the subscapularis tendon. Scarred bursal tissue was resected over the subscapularis and supraspinatus and infraspinatus tendons. The old suture material was resected some of the suture anchors were removed as well using a rongeur. They appeared to be Helicoil type anchors. The upper centimeter of the pectoralis was released for inferior exposure. The biceps tendon findings demonstrated biceps tendinopathy in the groove from the pectoralis up to the upper bicipital groove.. the biceps tendon was tenodesed to the pectoralis tendon with #2 FiberWire. The proximal biceps was resected. The subscapularis tendon was taken down off the lesser tuberosity using a subperiosteal dissection. A #1 Vicryl traction suture was placed into the free end of the subscapularis tendon and capsule. The subscapular muscle fibers were split longitudinally at the level of the circumflex vessels. The circumflex vessels were identified and tied off with silk ties and divided laterally. A Kitner elevator was used to free up the inferior fibers of the subscapularis off of the capsule. The axillary nerve was identified with a tug test and protected with a blunt Rula retractor between the nerve and the capsule. The subscapularis tendon was then taken down off of the lesser tuberosity subperiosteally and subperiosteal dissection was performed along the neck of the humerus as the arm is gradually externally rotated exposing the humeral head. The humeral head findings demonstrated moderate osteoarthritic changes mainly superiorly with no substantial's inferior spurs. A Fleming elevator was used to assist in releasing the capsule of the neck of the humerus. The capsule was divided with Gomez scissors down to the glenoid released off the anterior glenoid and the rotator interval was released to meet the capsular release and a 360 release of the subscapularis was accomplished. A Fukuda retractor was placed into the joint retracting the humeral head posterior. Glenoid findings demonstrated osteoarthritic changes superior glenoid with articular thinning still some retained cartilage.. The labrum and biceps tendon was resected. an anterior-inferior and posterior inferior capsular release were performed with electrocautery and a Fleming elevator on bone with the axillary nerve protected inferiorly by the retractor. Attention was then taken to the humeral preparation. The cutting guide was placed into the humeral head. It was positioned at 20 of retroversion. Oscillating saw was used to resect the humeral head giving the cut above the level of the posterior rotator cuff insertion site. The humerus was then prepared for the stem. First anchors had to be removed from the metaphyseal bone and more suture material had to be re- move from intramedullary position in order to pass the appropriate broaches. I used the ascend flex stem from [employer]. The sizing broaches were used followed by trial broaches up to a size 6B long which had the appropriate fit and fill. The appropriate sized cut protector was placed. The humerus was then retracted posterior to the glenoid. The glenoid was sized for a 29 baseplate and 42 glenoid sphere. The guide for the baseplate was positioned in a 10 inferior tilt and the central drill hole was made. The reamer for the 29 baseplate was used. The central drill was widened for the peg. The aequalis hydroxyapatite- coated 29 mm baseplate was impacted into position. The base plate was transfi xed with superior and inferior locking screws and anterior and posterior compression screws with stable fixation. The fan reamer was used for the 42 millimeter glenoid sphere. After irrigation the 42 glenoid sphere was impacted onto the baseplate and the screw was tightened. Attention was taken back to the humerus. The cut protector was removed and the plus or high offset humeral tray trial was assembled to the trial stem rotated appropriately to get bony coverage and then screwed in position. A trial reduction was performed. A 9 trial insert demonstrated good stability and no shuck. The trials were removed. 3 drill holes are made into the harder bone in the bicipital groove area and 3 #5 FiberWire sutures were placed transosseously. The canal was irrigated with antibiotic solution with bacitracin. The final component was assembled. The final component was 6B long stem ascend flex PTC Tornier, plus or high offset tray, 42+9 reversed polyethylene insert. This was then impacted into the humerus with a tight press-fit. It was reduced to the glenoid sphere. Stability was verified. Subscapularis was repaired with the #5 FiberWire sutures using Rommel-Justin suture technique. Lateral row soft tissue repair was performed with #2 FiberWire [id number] sutures. The pectoralis was repaired with #2 FiberWire [id number] sutures reinforcing the biceps tendon tenodesis. The arm was taken through a range of motion which demonstrated 160 degrees forward elevation, 110 degrees abduction, 60 degrees external rotation.. The implant was stable through the range of motion tested. Attention was taken to distal clavicle excision. The portion of the transverse scar was utilized for incision and extended medially over the distal clavicle. Skin was incised sharply subcutaneous flaps elevated. Subcutaneous bleeders were cauterized. A transverse incision was made across the distal clavicle. And superior capsule there was area of heterotopic ossification about a millimeter in diameter which was shelled out and resected from the capsule. The capsule was then released off the distal clavicle anterior and posteriorly exposing 1 cm distal clavicle. Proximally 1 cm distal clavicle was resected using oscillating saw. The end of the distal clavicle was severely arthritic and scarred soft tissue overlying it. The wound was irrigated and the deltotrapezial fascia was repaired with interrupted [id number] #2 FiberWire suture. The subcutaneous tissues were closed into 2-0 Vicryl suture and the skin was closed with mari. The deltopectoral wound was copiously irrigated. 2 Hemovac drains were placed. The deltopectoral interval was closed with ieukqe-we-ukkek #1 Vicryl sutures. The subcutaneous tissues were closed with 2- 0 Vicryl sutures. The skin was closed with mari. Sterile dressings were applied and a shoulder immobilizer. GALINA Jimenez my physician volunteer assistant assisted in the procedure to the entire procedure including patient positioning arm positioning prepping and draping soft tissue retraction instrument management suture management and performed the subcutaneous and skin closure and will participate in the postoperative care of the patient. I attest to the content of the Intraoperative Record and any orders documented therein. Any exceptions are noted below.
--- NOTE | 2019-11-21 14:23 | XRay Report ---
XR shoulder LT min 2V routine HISTORY: 74 years-old Male Post shoulder surgery left shoulder total joint arthroplasty COMPARISON: MRI left shoulder 08/30/2019 TECHNIQUE: 2 views of the left shoulder FINDINGS: Reverse left shoulder total joint arthroplasty demonstrates satisfactory alignment. No acute fracture . Overlying skin mari are noted along with expected postsurgical soft tissue swelling and deep tis chevy air with surgical drainage catheter. Findings are suggestive of resection of the distal left clav icle. Left lung base atelectasis. Cardiomegaly with prior median sternotomy. IMPRESSION: Reverse left shoulder total joint arthroplasty with expected postoperative changes. ACT 112: Negative or not required by law. The above report was generated using voice recognition software. It may contain grammatical, syntax o r spelling errors. Electronically signed by: Joe Cruz M.D. 11/21/2019 2:22 PM
--- NOTE | 2019-11-21 14:46 | Anesthesiology Progress Note ---
Date of Service November 21, 2019 Anesthesia Post Procedure Vital Signs Vital Signs: Temp Pulse Pulse Resp BP BP Pulse Ox 11/21/19 14:40 36.4 C L 80 16 102/61 96 11/21/19 14:30 36.4 C L 73 16 107/62 95 11/21/19 14:20 73 16 119/68 95 11/21/19 14:10 76 16 107/66 95 11/21/19 14:00 79 16 107/66 95 11/21/19 13:53 36.3 C L 85 16 125/78 95 11/21/19 07:40 36.7 C 67 18 126/73 92 Pain Intensity Right Shoulder: Pain Intensity: 2 Left Shoulder: Pain Intensity: 0 Transfer of Care Handoff Completed per policy Notes Mental Status: alert / awake / arousable Patient Amnestic to Procedure: Yes Nausea / Vomiting: adequately controlled Pain: adequately controlled Airway Patency, RR, SpO2: stable & adequate BP & HR: stable & adequate Hydration State: stable & adequate Anesthetic Complications: no major complications apparent
[2019-11-21] MEDS ORDERED: HYDROmorphone INJ 0.5 MG/0.5 ML SYR IV PRN (15:40)
[2019-11-21] MEDS ORDERED: NITROGLYCERIN SL 0.4 MG/TAB TAB SL SCH (15:40)
[2019-11-21] MEDS ORDERED: OXYCODONE HCL IR 5 MG TAB (IMMEDIATE RELEASE) PO PRN (15:40)
[2019-11-21] MEDS ORDERED: CLOTRIMAZOLE/BETAMETHASONE CR 15 GM TUBE EXT PRN (16:15)
[2019-11-21] MEDS ORDERED: ASPIRIN 81 MG ECTAB PO SCH (16:15)
[2019-11-21] MEDS ORDERED: ACETAMINOPHEN 500 MG TAB PO SCH (16:15)
[2019-11-21] MEDS ORDERED: FLUTICASONE PROPIONATE NA SPR 16 GM BTL PRN (16:30)
[2019-11-21] MEDS ORDERED: PHARMACY GLYCEMIC MGMT CONSULT PRN (16:33)
--- NOTE | 2019-11-21 16:41 | Consultation ---
Date of Consultation November 21, 2019 Assessment & Plan (1) S/p reverse total shoulder arthroplasty: POD #[address] Carlisle EBL 40ml; hemovac 80ml tolerated procedure well Pain/wound management per Ortho Activity and therapy as directed by Ortho Encourage incentive spirometry, wean O2 as able Monitor H&H pt received pre operative vanco - recommend monitor renal function Dr. Kemp discussed with Dr. Carlisle - continue post op antibiotics as directed by ortho (2) CAD (coronary artery disease): hx of BMS to RCA in 2000; subsequent CABGx 3 follows [facility] cardiology on ASA, Statin, metoprolol and lisinopril as outpt no chest pain/sob hold DESHAWN until re assessed in a.m. (3) Diabetes mellitus, type 2: controlled, a1c 7.0 hold metformin Glycemic pharmacy on board - appreciate their management (4) Hypertension: blood pressure controlled, on low side 109/70 hold lasix, lisinopril until volume and renal fxn re assessed in a.m. continue metoprolol (5) CKD (chronic kidney disease), stage III: baseline cr 1.3 monitor renal function in setting of pre op vanco use (6) Hyperlipidemia: continue statin (7) Sleep apnea: CPAP @ HS (8) DVT prophylaxis: per ortho disposition: per primary Follow up: PCP Mandy Moore upon discharge Pt was seen and examined in collaboration with Dr. Kemp, please see addendum Thank you for this consultation. We will follow the patient with you during their hospital stay. You can reach a [facility]/10 via pager @ [phone]. Supervising Physician Co-Signing Physician Notes I, Dr. Jefferson Kemp, have seen and examined the patient Mikel Sears with physician financial sales assistant and would like to comment that On Physical exam General: no acute distress HEENT: extraoccular movements intact Heart: regular heart rate Lungs: clear to auscultation bilaterally Abdomen: soft, nontender, positive bowel sounds Extremities/Neuro: wound vac of left upper extremities, left upper extremity in sling This is a patient who had Left Reverse Total Shoulder Arthroplasty, Biceps Tenodesis, Distal Clavicle Excision including removal heterotopic bone AC joint capsule, removal hardware (suture anchors and suture material) by orthopedic service Dr. Carlisle on 11/21/2019 and hospitalist medicine being asked for consultation for POST-OP Management -management of hypertension advise to hold off hold dose Lisinopril for now and can titrate up as needed depending on post-operative blood pressures, continue home dose metoprolol. management of home dose diuretic by holding the home dose Lasix 40 mg daily and instead should follow the blood pressures and renal function further before considering restarting the Lasix on 11/22/2019 -diabetes mellitus type 2 without intermediate teacher current use of insulin at home. Patient uses metformin at home. Orthopedics request pharmacy glycemic control but metformin should be held for now to prevent risk of lactic acidosis from metformin in context of recent surgery -patient has pain medications as per orthopedics. Hospitalist edit orthopedics order of acetaminophen 1000 mg q8 hours as scheduled medication as 650 mg every 8 hours for no more than 3 days to minimize risks of liver toxicity -on aspirin qhs at home and this is continued by orthopedic service; give oral pantoprazole in the hospital in place of home dose omeprazole -labs to be drawn on 11/22/2019 AM, follow the blood counts, patient had received pre-operative vancomycin, follow the renal function, discussed with Dr. Carlisle and he with orthopedic service will manage the post-operative antibiotics -discussed with patient about penicillin allergy but he does not recall other antibiotics that he had in the past without problems -management of ECHO with CPAP qhs -agree with other assessment and plans as per physician financial sales assistant -My colleague hospitalist Dr. Hahn will be following the patient starting on 11/22/2019 History of Present Illness Requesting Physician: Dr. Carlisle Reason for Consultation: Postop medical management Attending Physician: Twin Carlisle MD History of Present Illness This is a 74-year-old male who has significant past medical history of CAD with history of CABG x3 and PCI to RCA with BMS in 2001, T2DM, HTN, HLD, severe ECHO on CPAP, CKD stage III, aortic root enlargement 4.6 x 4.0 cm, GERD, BPH, diabetic neuropathy and depression who presents for elective left reverse total shoulder arthroplasty secondary to chronic left shoulder pain. Patient is drowsy during obtaining of history and physical exam. He currently complains of being thirsty and requesting water. He denies any postoperative nausea or vomiting, dizziness, lightheadedness, chest pain, short breath, cough, abdominal pain. He does have Corrigan catheter in place. Denies any difficulty with bowel or urinary habits prior to procedure. He does have good control of his T2DM with an A1c of 7.2 on 10/30/2019. His baseline creatinine is around 1.3 in setting of CKD stage III. He does follow with [facility] cardiology and is maintained on aspirin, statin, lisinopril and metoprolol. He offers no acute concerns or complaints at this time. Allergies Allergy/AdvReac Type Severity Reaction Status Date / Time Penicillins Allergy Intermediate Rash Verified 11/21/19 07:29 Home Medications Home Medications Medication Instructions Recorded Confirmed Type PreserVision AREDS 1 tab PO QAM 03/08/18 11/21/19 History Probiotic 3,000 mmu cells PO QAM 03/08/18 11/21/19 History aspirin 81 mg PO HS 03/08/18 11/21/19 History coenzyme Q10 [Co Q-10] 200 mg PO QAM 03/08/18 11/21/19 History fluticasone propionate [Flonase 2 spray INTRANASAL DAILY PRN 03/08/18 11/21/19 History Allergy Relief] furosemide 40 mg PO QAM 03/08/18 11/21/19 History metformin 500 mg PO BID 03/08/18 11/21/19 History multivitamin 1 cap PO QAM 03/08/18 11/21/19 History nitroglycerin [Nitrostat] 1 tab SUBLINGUAL UD 03/08/18 11/21/19 History omeprazole 40 mg PO QAM 03/08/18 11/21/19 History potassium chloride 10 meq PO BID 03/08/18 11/21/19 History rosuvastatin [Crestor] 40 mg PO HS 03/08/18 11/21/19 History vitamin B complex 1 cap PO QAM 03/08/18 11/21/19 History Jardiance 10 mg PO QAM 03/29/19 11/21/19 History bupropion HCl [Wellbutrin XL] 300 mg PO QAM 03/29/19 11/21/19 History metoprolol succinate [Toprol XL] 25 mg PO QAM 03/29/19 11/21/19 History cholecalciferol (vitamin D3) 50 mcg PO QAM 10/23/19 11/21/19 History [Vitamin D3] clobetasol-emollient 1 applic TOPICAL BID PRN 10/23/19 11/21/19 History clotrimazole-betamethasone 1 applic TOPICAL BID PRN 10/23/19 11/21/19 History ibuprofen 200 - 400 mg PO Q6H PRN 10/23/19 11/21/19 History linaclotide [Linzess] 72 mcg PO QAM 10/23/19 11/21/19 History lisinopril 2.5 mg PO DAILY 11/21/19 11/21/19 History Patient History Medical History Anxiety Asthma Allergic CAD (coronary artery disease) s/p [place] 2000 with stents x 2. Subsequent CABG x 3 "a few months later" Cervical radiculopathy CKD (chronic kidney disease), stage III F/U PCP Constipation Depression Diabetes mellitus, type 2 GERD (gastroesophageal reflux disease) Gum disease Pt reports sore gums Hyperlipidemia Hypertension Lumbar radiculopathy Numbness in buttocks and down LEs Myocardial Infarction 2000 Osteoarthritis Peripheral neuropathy Feet and hands Sleep apnea cpap, pt reports compliance Spinal stenosis, lumbar region with neurogenic claudication Surgical History History of arthroscopy right and left shoulder History of carpal tunnel release right and left History of colonoscopy History of coronary artery bypass graft 2001, 3 vessels History of ear surgery as child History of esophagogastroduodenoscopy (EGD) History of lumbar surgery History of mandibular surgery 1970s fracture repair History of total knee replacement right and left Hx of cardiac cath 2000, SHYANNE x 2 Hx of foot surgery left foot and pins Hx of hand surgery repair of left thumb Hx of vasectomy and reversal Family History Other Family history of cancer in father Social History Smoking Status: Former smoker Smoking End Date: QUIT 1993; Second Hand Exposure: No; Do You Dip or Chew Tobacco: No; Hx Alcohol Use: Yes Alcohol type: beer Hx Substance Use: No Preferred Language: Welsh Communication Ability: Effective Patented Hogshead Assembler Required: No Beliefs That Will Affect Care: None marital status: Current Living Situation: Spouse Other Information That Helps Us Care for You: No Feels Safe at Home: Yes Safety Concerns: Feels Safe At This Time Review of Systems Review of Systems: All systems reviewed & are unremarkable except as noted in HPI & below Physical Exam Physical Exam: Constitutional: WD/WN, tall, male, vitals as above, NAD, sitting up in bed, pleasant, conversing easily Head: Normocephalic, Atraumatic Eyes: PERRL, conjunctivae normal, anicteric sclerae ENMT: external ear and nose normal, oropharynx normal Neck: trachea midline, no thyromegaly normal visual inspection Respiratory: normal respiratory effort, lungs clear to auscultation, no wheeze, rales, rhonchi. Normal insp/exp effort, no accessory muscle use Cardiovascular: RRR, no murmur, no edema Vessels: no JVD or carotid bruit Chest: normal inspection of chest Abdomen: normal bowel sounds, soft, nontender, no hepatosplenomegaly Musculoskeletal: no cyanosis or clubbing, LUE clean dry intact, ice in place Skin: no rashes, warm and dry normal turgor Neurologic: PERRL, EOMI, accommodation nl, no face palsy, no dysarthria CN's II-XI intact bilaterally and moves all extremities Psychiatric: A+Ox3, euthymic affect Lymphatic: no cervical or axillary lymphadenopathy : Corrigan catheter in place draining clear yellow urine Results & Data ([facility]) Vital Signs (Past 12 Hours) Vital Signs Temp Pulse Pulse Pulse Resp BP BP 11/21/19 16:10 36.5 C 77 16 109/70 11/21/19 15:40 36.9 C 77 16 109/70 11/21/19 15:20 75 16 101/65 11/21/19 15:05 75 16 113/63 11/21/19 14:50 73 16 103/60 11/21/19 14:40 36.4 C L 80 16 102/61 11/21/19 14:30 36.4 C L 73 16 107/62 11/21/19 14:20 73 16 119/68 11/21/19 14:10 76 16 107/66 11/21/19 14:00 79 16 107/66 11/21/19 13:53 36.3 C L 85 16 125/78 11/21/19 07:40 36.7 C 67 18 126/73 Pulse Ox 11/21/19 16:10 95 11/21/19 15:40 95 11/21/19 15:20 96 11/21/19 15:05 96 11/21/19 14:50 96 11/21/19 14:40 96 11/21/19 14:30 95 11/21/19 14:20 95 11/21/19 14:10 95 11/21/19 14:00 95 11/21/19 13:53 95 11/21/19 07:40 92 Laboratory Results Preop H&H 14.6 and 44.0, WBC 7.21, platelet 2.42 BUN 28/creatinine 1.37, A1c 7.0 COVID test negative Diagnostic Findings Shoulder Xray: IMPRESSION: Reverse left shoulder total joint arthroplasty with expected postoperative changes. Medications Administered Discontinued Medications Acetaminophen (Acetaminophen 500 Mg Tab) 1,000 mg PO PREOP FRANCESCA Stop: 11/21/19 18:00 Last Admin: 11/21/19 08:06 Dose: 1,000 mg Documented by: [id number] Bacitracin (Bacitracin Inj 50,000 Unit Vial) Confirm Administered Dose 50,000 units .ROUTE .STK-MED ONE Stop: 11/21/19 10:00 Last Admin: 11/21/19 12:26 Dose: 50,000 units Documented by: [id number] Celecoxib (Celebrex 200 Mg Cap) 200 mg PO PREOP FRANCESCA Stop: 11/21/19 18:00 Last Admin: 11/21/19 08:05 Dose: 200 mg Documented by: [id number] Famotidine (Famotidine 20 Mg Tab) 20 mg PO PREOP FRANCESCA Stop: 11/21/19 18:00 Last Admin: 11/21/19 08:04 Dose: 20 mg Documented by: [id number] Gabapentin (Gabapentin 300 Mg Cap) 300 mg PO PREOP FRANCESCA Stop: 11/21/19 18:00 Last Admin: 11/21/19 08:05 Dose: 300 mg Documented by: [id number] Vancomycin HCl 1,750 mg/ (Sodium Chloride) 535 mls @ 200 mls/hr IV PREOP FRANCESCA Stop: 11/21/19 18:00 Last Admin: 11/21/19 07:27 Dose: 200 mls/hr Documented by: [id number] Lactated Ringer's (Lr) 1,000 mls @ 15 mls/hr IV .Q24H FRANCESCA Stop: 11/22/19 05:59 Last Infusion: 11/21/19 10:21 Dose: 0 mls/hr Documented by: [id number] Admin: 11/21/19 07:27 Dose: 15 mls/hr Documented by: [id number] Metoclopramide HCl (Metoclopramide Hcl 10 Mg Tablet) 10 mg PO PREOP FRANCESCA Stop: 11/21/19 18:00 Last Admin: 11/21/19 08:05 Dose: 10 mg Documented by: [id number] Miscellaneous (Ortho Joint Anesthetic ) Confirm Administered Dose 1 ea .ROUTE .STK-MED ONE Stop: 11/21/19 09:54 Last Admin: 11/21/19 12:26 Dose: Not Given Documented by: [id number] ECG Rate (beats per minute): 67 Rhythm: normal sinus Findings: + 1st degree AV block
[2019-11-21] MEDS ORDERED: VANCOMYCIN HCL 1,750 MG in SODIUM CHLORIDE 0.9% 500 ML IV SCH ×2 (17:00→19:00)
--- NOTE | 2019-11-21 17:11 | Pharmacy Report ---
Pharmacy Glycemic Short Note 2 - Date of Service November 21, 2019 - Glycemic Short BSG Results (Last 24 hours): 11/21/19 11/21/19 07:18 14:08 POC Glucose 121 H 141 H OUTPATIENT ANTIDIABETIC REGIMEN: * Metformin 500 mg BID, Jardiance 10 mg QAM * A1c 7.0% on 10/30/19 ASSESSMENT: * Mr. Sears is admitted following left shoulder arthroplasty, he is on oral medications for his type II diabetes outpatient * Possible dexamethasone administration in the OR although unable to confirm at present time, Will give 10 units of lantus with dinner and scale for PM if BSG elevate * Will start novolog parameters between weight based stress of 1 and 2. PLAN FOR INPATIENT GLYCEMIC CONTROL: * Hold outpatient oral diabetes medications * Basal insulin * Lantus 10 units x 1 and then scale 10-20 units HS * Bolus insulin * NovoLog per scale ACHS or Q6hrs while NPO * Goal Range: Low 110 mg/dL - High 140 mg/dL * Correction Factor: 25 mg/dL/unit * Nutritional / Prandial insulin per carb ratio of 1 unit per 7 grams CHO consumed
[2019-11-21] MEDS ORDERED: DEXTROSE 50% 50 ML SYRINGE IV PRN (17:15)
[2019-11-21] MEDS ORDERED: CARBOHYDRATES FOR HYPOGLYCEMIA PO PRN (17:15)
[2019-11-21] MEDS ORDERED: INSULIN GLARGINE SOLOSTAR 100 UNITS/ML 3 ML PEN SC ONE ×2 (17:15→21:00)
[2019-11-21] MEDS ORDERED: GLUCOSE 40% GEL 15 GM TUBE PO PRN (17:15)
[2019-11-21] MEDS ORDERED: GLUCOSE 10 TABS/TUBE PO PRN (17:15)
[2019-11-21] MEDS ORDERED: GLUCAGON FOR INJ 1 MG VIAL SQ PRN (17:15)
[2019-11-21] MEDS: LACTATED RINGER'S 1,000 ML IV SCH (17:47)
[2019-11-21] MEDS: INSULIN ASPART 100 UNITS/ML 3 ML PEN SC SCH ×3 (17:49→23:48)
[2019-11-21] MEDS: PANTOprazole 40 MG TAB PO SCH (18:06)
[2019-11-21] MEDS: ASPIRIN 81 MG ECTAB PO SCH (20:58)
[2019-11-21] MEDS: POTASSIUM CHLORIDE 10 MEQ TABCR PO SCH (20:58)
[2019-11-21] MEDS: ROSUVASTATIN CALCIUM 20 MG TAB PO SCH (20:58)
[2019-11-21] MEDS ORDERED: METFORMIN HCL 500 MG TAB PO SCH (21:00)
[2019-11-21] MEDS: ACETAMINOPHEN 325 MG TAB PO SCH (23:40)
[2019-11-22] MEDS: INSULIN ASPART 100 UNITS/ML 3 ML PEN SC SCH ×5 (03:44→20:39)
[2019-11-22 07:01] LABS: Basophils # (auto) 0.03 K/uL (0-0.2); Basophils % (auto) 0.3 %; Eosinophils # (auto) 0.13 K/uL (0-0.5); Eosinophils % (auto) 1.5 %; Hematocrit (blood only) 36.1 % (42-52); Hemoglobin 12.1 g/dL (14.0-18.0); Immature Granulocytes # (auto) 0.01 K/uL (0.00-0.02); Immature Granulocytes % (auto) 0.1 %; Lymphocytes # (auto) 1.45 K/uL (1.2-3.4); Lymphocytes % (auto) 16.4 %; Mean Corpuscular Hemoglobin 29.6 pg (25-34); Mean Corpuscular Hgb Conc 33.5 g/dL (32-36); Mean Corpuscular Volume 88.3 fL (80-100); Mean Platelet Volume 9.1 fL (7.4-10.4); Monocytes # (auto) 1.29 K/uL (0.11-0.59); Monocytes % (auto) 14.6 %; Neutrophils # (auto) 5.93 K/uL (1.4-6.5); Neutrophils % (auto) 67.1 %; Platelet Count 193 K/uL (130-400); RDW Coefficient of Variation 14.8 % (11.5-14.5); RDW Standard Deviation 47.6 fL (36.4-46.3); Red Blood Count 4.09 M/uL (4.7-6.1); White Blood Count 8.84 K/uL (4.8-10.8)
[2019-11-22] MEDS: LACTATED RINGER'S 1,000 ML IV SCH (07:38)
[2019-11-22 07:43] LABS: Calcium 8.6 mg/dl (8.5-10.1); Creatinine Clr Calc Pharmacy 75.3 ml/min
[2019-11-22] MEDS ORDERED: lisinopriL 10 MG TAB PO SCH (09:00)
[2019-11-22] MEDS ORDERED: NON-FORMULARY MEDICATION (Multivitamin 1 CAP) PO SCH (09:00)
[2019-11-22] MEDS ORDERED: FUROSEMIDE 40 MG TAB PO SCH (09:00)
[2019-11-22] MEDS ORDERED: NON-FORMULARY MEDICATION (Omeprazole 40 MG) PO SCH (09:00)
[2019-11-22] MEDS ORDERED: NON-FORMULARY MEDICATION (Empagliflozin [Jardiance] 10 MG) PO SCH (09:00)
[2019-11-22] MEDS ORDERED: NON-FORMULARY MEDICATION (Coenzyme Q10 [Co Q-10] 200 MG) PO SCH (09:00)
[2019-11-22] MEDS: ACETAMINOPHEN 325 MG TAB PO SCH ×2 (09:08→17:24)
[2019-11-22] MEDS: POTASSIUM CHLORIDE 10 MEQ TABCR PO SCH ×2 (09:08→20:22)
[2019-11-22] MEDS: PANTOprazole 40 MG TAB PO SCH (09:09)
[2019-11-22] MEDS: LACTOBACILLUS ACIDOPHILUS (FLORANEX) TAB PO SCH (09:09)
[2019-11-22] MEDS: VITAMIN B COMPLEX TAB PO SCH (09:10)
[2019-11-22] MEDS: METOPROLOL SUCC 25MG EXT REL TAB PO SCH (09:10)
[2019-11-22] MEDS: CHOLECALCIFEROL 1,000 UNITS 25 MCG TAB PO SCH (09:10)
[2019-11-22] MEDS: BuPROPion XL 300 MG TABCR PO SCH (09:10)
[2019-11-22] MEDS: CEROVITE ADV FORMULA TAB PO SCH (09:10)
--- NOTE | 2019-11-22 10:05 | Pharmacy Report ---
Pharmacy Glycemic Short Note 2 - Date of Service November 22, 2019 - Glycemic Short BSG Results (Last 24 hours): 11/21/19 11/21/19 11/21/19 14:08 17:22 20:39 Glucose POC Glucose 141 H 135 H 167 H 11/21/19 11/22/19 11/22/19 23:37 03:41 06:51 Glucose 102 H POC Glucose 139 H 125 H 11/22/19 08:15 Glucose POC Glucose 92 OUTPATIENT ANTIDIABETIC REGIMEN: * Metformin 500 mg BID, Jardiance 10 mg QAM * A1c 7.0% on 10/30/19 ASSESSMENT: 11/21: * Patient received 27 units of insulin yesterday, of which 20 were basal insulin to cover steroids * Fasting BSG 102 mg/dL - will plan to loosen CF/CR as steroids wearing off * Plan to resume home metformin with dinner today PLAN FOR INPATIENT GLYCEMIC CONTROL: * Resume home metformin with dinner * Basal insulin - not indicated * Bolus insulin * NovoLog per scale ACHS or Q6hrs while NPO * Goal Range: Low 110 mg/dL - High 140 mg/dL * Correction Factor: 30 mg/dL/unit * Nutritional / Prandial insulin per carb ratio of 1 unit per 10 grams CHO consumed PLAN FOR DISCHARGE: * A1C ~7% - would recommend continuation of home diabetic agents as long as patient not having low BSGs outpatient.
--- NOTE | 2019-11-22 11:06 | Orthopedic Progress Note ---
Date of Service November 22, 2019 Assessment & Plan (1) S/p reverse total shoulder arthroplasty: POD#1 Left reverse TSA -PT/OT per protocol. Minimal therapy to left shoulder -Pain management -DVT prophylaxis-ASA 81mg daily -D/C planning-home when stable, possibly later today. Admission and Anticipated Discharge Date Admission Date: November 21, 2019 Subjective Patient doing well this morning, minimal pain. Block resolving. No complaints. Denies chest pain, sob, dizziness, n/v/d. No issues with ambulation. Review of Systems Review of Systems: All systems reviewed & are unremarkable except as noted in HPI & below Physical Exam Physical Exam: Dressing is c/d/i, sling in place. Fingers are mobile. Sensation and n/v distally intact. Good infection control manager strength. Hemovac in place. Constitutional: well developed and well nourished; no acute distress Results & Data ([facility]) Vital Signs (Past 12 Hours) Vital Signs Temp Pulse Pulse Resp BP Pulse Ox 11/22/19 07:45 36.5 C 68 18 109/67 97 11/22/19 03:51 65 16 96 11/22/19 03:42 36.4 C L 68 16 108/68 99 11/21/19 23:11 36.5 C 11/21/19 23:08 35.6 C L 65 16 98/63 L 92 Laboratory Results Lab Results 10/30/19 10/30/19 10/30/19 Range/Units 12:28 12:28 12:28 WBC 7.21 (4.8-10.8) K/uL RBC 5.00 (4.7-6.1) M/uL Hgb 14.6 (14.0-18.0) g/dL Hct 44.0 (42-52) % MCV 88.0 (80-100) fL MCH 29.2 (25-34) pg MCHC 33.2 (32-36) g/dL RDW Std Deviation 48.1 H (36.4-46.3) fL RDW Coeff of Christopher 15.1 H (11.5-14.5) % Plt Count 242 (130-400) K/uL MPV 10.1 (7.4-10.4) fL Immature Gran % (Auto) 0.3 % Neut % (Auto) 58.7 % Lymph % (Auto) 22.1 % Bracken % (Auto) 13.7 % Eos % (Auto) 4.6 % Baso % (Auto) 0.6 % Neut # (Auto) 4.24 (1.4-6.5) K/uL Lymph # (Auto) 1.59 (1.2-3.4) K/uL Bracken # (Auto) 0.99 H (0.11-0.59) K/uL Eos # (Auto) 0.33 (0-0.5) K/uL Baso # (Auto) 0.04 (0-0.2) K/uL Immature Gran # (Auto) 0.02 (0.00-0.02) K/uL PT 10.8 (9.0-12.0) Seconds INR 1.0 (0.9-1.1) APTT 33.4 H (21.0-31.0) Seconds PTT Ratio 1.2 Sodium 138 (136-145) mmol/L Potassium 4.0 (3.5-5.1) mmol/L Chloride 104 (98-107) mmol/L Carbon Dioxide 29 (21-32) mmol/L Anion Gap 5.0 (3-11) BUN 28 H (7-18) mg/dl Creatinine 1.37 (0.6-1.4) mg/dl Est Cr Clr Drug Dosing 63.7 ml/min Est GFR ( Amer) 58.9 Est GFR (Non-Af Amer) 50.8 BUN/Creatinine Ratio 20.7 H (10-20) Glucose 126 H (70-99) mg/dl POC Glucose (70-99) mg/dl Estimat Average Glucose mg/dl Hemoglobin A1c (4.5-5.6) % Calcium 9.4 (8.5-10.1) mg/dl Albumin 3.8 (3.4-5.0) gm/dl Urine Color Urine Appearance (Clear) Urine pH (4.5-7.5) Ur Specific Thornton (1.000-1.030) Urine Protein (Negative) Urine Glucose (UA) (Negative) Urine Ketones (Negative) Urine Blood (Negative) Urine Nitrite (Negative) Urine Bilirubin (Negative) Urine Urobilinogen (Negative) Ur Leukocyte Esterase (Negative) Hepatitis C Ab Screen (Neg) Blood Type Antibody Screen 10/30/19 10/30/19 10/30/19 Range/Units 12:28 12:28 Unknown WBC (4.8-10.8) K/uL RBC (4.7-6.1) M/uL Hgb (14.0-18.0) g/dL Hct (42-52) % MCV (80-100) fL MCH (25-34) pg MCHC (32-36) g/dL RDW Std Deviation (36.4-46.3) fL RDW Coeff of Christopher (11.5-14.5) % Plt Count (130-400) K/uL MPV (7.4-10.4) fL Immature Gran % (Auto) % Neut % (Auto) % Lymph % (Auto) % Bracken % (Auto) % Eos % (Auto) % Baso % (Auto) % Neut # (Auto) (1.4-6.5) K/uL Lymph # (Auto) (1.2-3.4) K/uL Bracken # (Auto) (0.11-0.59) K/uL Eos # (Auto) (0-0.5) K/uL Baso # (Auto) (0-0.2) K/uL Immature Gran # (Auto) (0.00-0.02) K/uL PT (9.0-12.0) Seconds INR (0.9-1.1) APTT (21.0-31.0) Seconds PTT Ratio Sodium (136-145) mmol/L Potassium (3.5-5.1) mmol/L Chloride (98-107) mmol/L Carbon Dioxide (21-32) mmol/L Anion Gap (3-11) BUN (7-18) mg/dl Creatinine (0.6-1.4) mg/dl Est Cr Clr Drug Dosing ml/min Est GFR ( Amer) Est GFR (Non-Af Amer) BUN/Creatinine Ratio (10-20) Glucose (70-99) mg/dl POC Glucose (70-99) mg/dl Estimat Average Glucose 154 mg/dl Hemoglobin A1c 7.0 H (4.5-5.6) % Calcium (8.5-10.1) mg/dl Albumin (3.4-5.0) gm/dl Urine Color Yellow Urine Appearance Clear (Clear) Urine pH 5.0 (4.5-7.5) Ur Specific Thornton 1.016 (1.000-1.030) Urine Protein Negative (Negative) Urine Glucose (UA) 3+ H (Negative) Urine Ketones Negative (Negative) Urine Blood Negative (Negative) Urine Nitrite Negative (Negative) Urine Bilirubin Negative (Negative) Urine Urobilinogen Negative (Negative) Ur Leukocyte Esterase Negative (Negative) Hepatitis C Ab Screen (Neg) Blood Type O Negative Antibody Screen NEGATIVE 11/21/19 11/21/19 11/21/19 Range/Units 07:18 14:08 17:22 WBC (4.8-10.8) K/uL RBC (4.7-6.1) M/uL Hgb (14.0-18.0) g/dL Hct (42-52) % MCV (80-100) fL MCH (25-34) pg MCHC (32-36) g/dL RDW Std Deviation (36.4-46.3) fL RDW Coeff of Christopher (11.5-14.5) % Plt Count (130-400) K/uL MPV (7.4-10.4) fL Immature Gran % (Auto) % Neut % (Auto) % Lymph % (Auto) % Bracken % (Auto) % Eos % (Auto) % Baso % (Auto) % Neut # (Auto) (1.4-6.5) K/uL Lymph # (Auto) (1.2-3.4) K/uL Bracken # (Auto) (0.11-0.59) K/uL Eos # (Auto) (0-0.5) K/uL Baso # (Auto) (0-0.2) K/uL Immature Gran # (Auto) (0.00-0.02) K/uL PT (9.0-12.0) Seconds INR (0.9-1.1) APTT (21.0-31.0) Seconds PTT Ratio Sodium (136-145) mmol/L Potassium (3.5-5.1) mmol/L Chloride (98-107) mmol/L Carbon Dioxide (21-32) mmol/L Anion Gap (3-11) BUN (7-18) mg/dl Creatinine (0.6-1.4) mg/dl Est Cr Clr Drug Dosing ml/min Est GFR ( Amer) Est GFR (Non-Af Amer) BUN/Creatinine Ratio (10-20) Glucose (70-99) mg/dl POC Glucose 121 H 141 H 135 H (70-99) mg/dl Estimat Average Glucose mg/dl Hemoglobin A1c (4.5-5.6) % Calcium (8.5-10.1) mg/dl Albumin (3.4-5.0) gm/dl Urine Color Urine Appearance (Clear) Urine pH (4.5-7.5) Ur Specific Thornton (1.000-1.030) Urine Protein (Negative) Urine Glucose (UA) (Negative) Urine Ketones (Negative) Urine Blood (Negative) Urine Nitrite (Negative) Urine Bilirubin (Negative) Urine Urobilinogen (Negative) Ur Leukocyte Esterase (Negative) Hepatitis C Ab Screen (Neg) Blood Type Antibody Screen 11/21/19 11/21/19 11/22/19 Range/Units 20:39 23:37 03:41 WBC (4.8-10.8) K/uL RBC (4.7-6.1) M/uL Hgb (14.0-18.0) g/dL Hct (42-52) % MCV (80-100) fL MCH (25-34) pg MCHC (32-36) g/dL RDW Std Deviation (36.4-46.3) fL RDW Coeff of Christopher (11.5-14.5) % Plt Count (130-400) K/uL MPV (7.4-10.4) fL Immature Gran % (Auto) % Neut % (Auto) % Lymph % (Auto) % Bracken % (Auto) % Eos % (Auto) % Baso % (Auto) % Neut # (Auto) (1.4-6.5) K/uL Lymph # (Auto) (1.2-3.4) K/uL Bracken # (Auto) (0.11-0.59) K/uL Eos # (Auto) (0-0.5) K/uL Baso # (Auto) (0-0.2) K/uL Immature Gran # (Auto) (0.00-0.02) K/uL PT (9.0-12.0) Seconds INR (0.9-1.1) APTT (21.0-31.0) Seconds PTT Ratio Sodium (136-145) mmol/L Potassium (3.5-5.1) mmol/L Chloride (98-107) mmol/L Carbon Dioxide (21-32) mmol/L Anion Gap (3-11) BUN (7-18) mg/dl Creatinine (0.6-1.4) mg/dl Est Cr Clr Drug Dosing ml/min Est GFR ( Amer) Est GFR (Non-Af Amer) BUN/Creatinine Ratio (10-20) Glucose (70-99) mg/dl POC Glucose 167 H 139 H 125 H (70-99) mg/dl Estimat Average Glucose mg/dl Hemoglobin A1c (4.5-5.6) % Calcium (8.5-10.1) mg/dl Albumin (3.4-5.0) gm/dl Urine Color Urine Appearance (Clear) Urine pH (4.5-7.5) Ur Specific Thornton (1.000-1.030) Urine Protein (Negative) Urine Glucose (UA) (Negative) Urine Ketones (Negative) Urine Blood (Negative) Urine Nitrite (Negative) Urine Bilirubin (Negative) Urine Urobilinogen (Negative) Ur Leukocyte Esterase (Negative) Hepatitis C Ab Screen (Neg) Blood Type Antibody Screen 11/22/19 11/22/19 11/22/19 Range/Units 06:51 06:51 06:51 WBC 8.84 (4.8-10.8) K/uL RBC 4.09 L (4.7-6.1) M/uL Hgb 12.1 L (14.0-18.0) g/dL Hct 36.1 L (42-52) % MCV 88.3 (80-100) fL MCH 29.6 (25-34) pg MCHC 33.5 (32-36) g/dL RDW Std Deviation 47.6 H (36.4-46.3) fL RDW Coeff of Christopher 14.8 H (11.5-14.5) % Plt Count 193 (130-400) K/uL MPV 9.1 (7.4-10.4) fL Immature Gran % (Auto) 0.1 % Neut % (Auto) 67.1 % Lymph % (Auto) 16.4 % Bracken % (Auto) 14.6 % Eos % (Auto) 1.5 % Baso % (Auto) 0.3 % Neut # (Auto) 5.93 (1.4-6.5) K/uL Lymph # (Auto) 1.45 (1.2-3.4) K/uL Bracken # (Auto) 1.29 H (0.11-0.59) K/uL Eos # (Auto) 0.13 (0-0.5) K/uL Baso # (Auto) 0.03 (0-0.2) K/uL Immature Gran # (Auto) 0.01 (0.00-0.02) K/uL PT (9.0-12.0) Seconds INR (0.9-1.1) APTT (21.0-31.0) Seconds PTT Ratio Sodium 140 (136-145) mmol/L Potassium 4.0 (3.5-5.1) mmol/L Chloride 108 H (98-107) mmol/L Carbon Dioxide 25 (21-32) mmol/L Anion Gap 7.0 (3-11) BUN 19 H (7-18) mg/dl Creatinine 1.14 (0.6-1.4) mg/dl Est Cr Clr Drug Dosing 75.3 ml/min Est GFR ( Amer) 73.0 Est GFR (Non-Af Amer) 63.0 BUN/Creatinine Ratio 17.0 (10-20) Glucose 102 H (70-99) mg/dl POC Glucose (70-99) mg/dl Estimat Average Glucose mg/dl Hemoglobin A1c (4.5-5.6) % Calcium 8.6 (8.5-10.1) mg/dl Albumin (3.4-5.0) gm/dl Urine Color Urine Appearance (Clear) Urine pH (4.5-7.5) Ur Specific Thornton (1.000-1.030) Urine Protein (Negative) Urine Glucose (UA) (Negative) Urine Ketones (Negative) Urine Blood (Negative) Urine Nitrite (Negative) Urine Bilirubin (Negative) Urine Urobilinogen (Negative) Ur Leukocyte Esterase (Negative) Hepatitis C Ab Screen Neg (Neg) Blood Type Antibody Screen 11/22/19 Range/Units 08:15 WBC (4.8-10.8) K/uL RBC (4.7-6.1) M/uL Hgb (14.0-18.0) g/dL Hct (42-52) % MCV (80-100) fL MCH (25-34) pg MCHC (32-36) g/dL RDW Std Deviation (36.4-46.3) fL RDW Coeff of Christopher (11.5-14.5) % Plt Count (130-400) K/uL MPV (7.4-10.4) fL Immature Gran % (Auto) % Neut % (Auto) % Lymph % (Auto) % Bracken % (Auto) % Eos % (Auto) % Baso % (Auto) % Neut # (Auto) (1.4-6.5) K/uL Lymph # (Auto) (1.2-3.4) K/uL Bracken # (Auto) (0.11-0.59) K/uL Eos # (Auto) (0-0.5) K/uL Baso # (Auto) (0-0.2) K/uL Immature Gran # (Auto) (0.00-0.02) K/uL PT (9.0-12.0) Seconds INR (0.9-1.1) APTT (21.0-31.0) Seconds PTT Ratio Sodium (136-145) mmol/L Potassium (3.5-5.1) mmol/L Chloride (98-107) mmol/L Carbon Dioxide (21-32) mmol/L Anion Gap (3-11) BUN (7-18) mg/dl Creatinine (0.6-1.4) mg/dl Est Cr Clr Drug Dosing ml/min Est GFR ( Amer) Est GFR (Non-Af Amer) BUN/Creatinine Ratio (10-20) Glucose (70-99) mg/dl POC Glucose 92 (70-99) mg/dl Estimat Average Glucose mg/dl Hemoglobin A1c (4.5-5.6) % Calcium (8.5-10.1) mg/dl Albumin (3.4-5.0) gm/dl Urine Color Urine Appearance (Clear) Urine pH (4.5-7.5) Ur Specific Thornton (1.000-1.030) Urine Protein (Negative) Urine Glucose (UA) (Negative) Urine Ketones (Negative) Urine Blood (Negative) Urine Nitrite (Negative) Urine Bilirubin (Negative) Urine Urobilinogen (Negative) Ur Leukocyte Esterase (Negative) Hepatitis C Ab Screen (Neg) Blood Type Antibody Screen
[2019-11-22] MEDS ORDERED: CLOBETASOL PROPIONATE 0.05% OINT 15 GM TUBE EXT PRN (11:35)
--- NOTE | 2019-11-22 15:43 | Hospitalist Progress Note ---
Date of Service November 22, 2019 Assessment & Plan (1) S/p reverse total shoulder arthroplasty: POD #[address] Carlisle EBL 40ml; hemovac 80ml tolerated procedure well Post op H&H stable Pain/wound management per Ortho Activity and therapy as directed by Ortho Encourage incentive spirometry, in room air (2) CAD (coronary artery disease): hx of BMS to RCA in 2000; subsequent CABGx 3 follows [facility] cardiology on ASA, Statin, metoprolol and lisinopril as outpt no chest pain/sob Chronic diastolic (congestive) heart failure HX of diastolic CHF, Follows with [facility] cardiology Preoperative echo showed an EF of 55 to 59%, mid posterior wall and basal inferior wall hypokinesis, grade 1 diastolic dysfunction of the left ventricle, mild aortic valve sclerosis, mild mitral regurgitation, Stable volume status Lasix and lisinopril kept on hold for borderline hypotension (3) Diabetes mellitus, type 2: controlled, a1c 7.0 hold metformin Glycemic pharmacy on board - appreciate their management (4) Hypertension: blood pressure , Remains on low side 109/7 Continue to hold lasix, lisinopril -can be resumed on discharge if BP remains stable continue metoprolol Denies any feeling of dizzy spell or lightheadedness Reports that his blood pressure blood pressure always puts his blood pressure always been in low 100s Patient is on 3 antihypertensive medications lisinopril Lasix metoprolol Lisinopril dose was recently reduced to 2.5 mg daily Patient will need close follow-up with family physician and father titrate down of BP meds to prevent hypotension (5) CKD (chronic kidney disease), stage III: Renal function remains at baseline (6) Hyperlipidemia: continue statin (7) Sleep apnea: CPAP @ HS (8) DVT prophylaxis: per ortho disposition: per primary Follow up: PCP Mandy Moore upon discharge Thank you for this consultation. We will follow the patient with you during their hospital stay. You can reach a member of the [facility] Hospitalist Team 11/10 via pager @ [phone]. Admission and Anticipated Discharge Date Admission Date: November 21, 2019 Subjective Sitting up on chair, doing well, walked on the hallway, no shortness of breath no dyspnea on exertion Left shoulder surgical pain has improved Review of Systems Review of Systems: All systems reviewed & are unremarkable except as noted in HPI & below Physical Exam Constitutional: WD/WN, vitals as above no acute distress Eyes: PERRL, conjunctivae normal, anicteric sclerae ENMT: external ear and nose normal, oropharynx normal Neck: trachea midline, no thyromegaly Respiratory: normal respiratory effort, lungs clear to auscultation Cardiovascular: RRR, no murmur, no edema Gastrointestinal (Abdomen): normal bowel sounds, soft, nontender, no hepatosplenomegaly Musculoskeletal: Status post left shoulder surgery, sling present Skin: no rashes, warm and dry Neurologic: PERRL, EOMI, accommodation nl, no face palsy, no dysarthria Psychiatric: A+Ox3, euthymic affect Results & Data Results & Data ([facility]) Vital Signs (Past 12 Hours) Vital Signs Temp Pulse Pulse Resp BP Pulse Ox 11/22/19 12:00 36.5 C 66 16 108/64 98 11/22/19 07:45 36.5 C 68 18 109/67 97 11/22/19 03:51 65 16 96 11/22/19 03:42 36.4 C L 68 16 108/68 99
[2019-11-22] MEDS: METFORMIN HCL ER 500 MG TABCR PO SCH (17:24)
[2019-11-22] MEDS: ROSUVASTATIN CALCIUM 20 MG TAB PO SCH (20:22)
[2019-11-22] MEDS: ASPIRIN 81 MG ECTAB PO SCH (20:22)
[2019-11-23] MEDS: ACETAMINOPHEN 325 MG TAB PO SCH ×2 (01:16→09:00)
[2019-11-23 06:02] LABS: Basophils # (auto) 0.03 K/uL (0-0.2); Basophils % (auto) 0.4 %; Eosinophils # (auto) 0.38 K/uL (0-0.5); Eosinophils % (auto) 4.8 %; Hematocrit (blood only) 35.3 % (42-52); Hemoglobin 11.7 g/dL (14.0-18.0); Immature Granulocytes # (auto) 0.02 K/uL (0.00-0.02); Immature Granulocytes % (auto) 0.3 %; Lymphocytes # (auto) 1.41 K/uL (1.2-3.4); Mean Corpuscular Hemoglobin 29.1 pg (25-34); Mean Corpuscular Hgb Conc 33.1 g/dL (32-36); Mean Corpuscular Volume 87.8 fL (80-100); Mean Platelet Volume 9.1 fL (7.4-10.4); Monocytes % (auto) 16.6 %; Neutrophils % (auto) 59.9 %; Platelet Count 191 K/uL (130-400); RDW Coefficient of Variation 14.8 % (11.5-14.5); RDW Standard Deviation 47.4 fL (36.4-46.3); Red Blood Count 4.02 M/uL (4.7-6.1); White Blood Count 7.84 K/uL (4.8-10.8)
[2019-11-23 06:32] LABS: BUN Creatinine Ratio 14.1 (10-20); Calcium 8.3 mg/dl (8.5-10.1); Creatinine Clr Calc Pharmacy 78.7 ml/min; Est GFR (African American) 77.1; Est GFR (Non-African American) 66.5; Potassium 3.7 mmol/L (3.5-5.1)
--- NOTE | 2019-11-23 08:11 | Orthopedic Progress Note ---
Date of Service November 23, 2019 Assessment & Plan (1) S/p reverse total shoulder arthroplasty: POD#2 Left reverse TSA -PT/OT per protocol. Minimal therapy to left shoulder -Pain management -DVT prophylaxis-ASA 81mg daily -D/C planning-home when stable, today if medicine clears him- Hypotension Admission and Anticipated Discharge Date Admission Date: November 21, 2019 Subjective POD #2 Sitting up on chair, doing well, walked on the hallway, no shortness of breath no dyspnea on exertion Left shoulder surgical pain has improved Denies SOB, CP, N/V BP's continue to run low 97/61 this AM- No dizziness Physical Exam Physical Exam: Left shoulder dressings c/d/i, no drainage. Fingers mobile. A&Ox3 N/V+ Results & Data ([facility]) Vital Signs (Past 12 Hours) Vital Signs Temp Pulse Pulse Resp BP Pulse Ox 11/23/19 07:22 36.8 C 91 H 18 97/61 L 96 11/23/19 04:00 36.5 C 86 16 112/76 95 11/22/19 23:45 70 18 98 11/22/19 23:13 36.4 C L 92 H 18 119/72 92
--- NOTE | 2019-11-23 08:41 | Pharmacy Report ---
Pharmacy Glycemic Sign Off Nt - Date of Service November 23, 2019 - Assessment & Plan ASSESSMENT: * Pharmacy was consulted by Bowen Woo on 11/20 for glycemic control and to write orders per [facility] inpatient glycemic control protocol. * Major changes made by pharmacy to antidiabetic regimen include: * Initially added basal insulin for coverage of steroids and novolog * No longer requiring basal, removed CR and added home metformin * Patient has required only 9 units of insulin over last 24 hrs * BSGs ranging 92-147 mg/dl * Regimen has only required minor adjustments over the past 24 hrs to achieve this level of control * Do not anticipate further changes in patient status that would quickly deteriorate glycemic control (i.e. patient to be NPO for upcoming procedure, steroids tapering, starting tube feedings, etc). * Please see recommendations for outpatient antidiabetic regimen below. PLAN FOR INPATIENT GLYCEMIC CONTROL: No changes needed to current regimen. Resumed home metformin 11/21 * Continue NovoLog per scale ACHS/Q6hrs while NPO * Goal range = 110-140 mg/dl * CF = 30 mg/dl/unit * CR = 1 unit for ever -- g CHO consumed * Pharmacy is signing off of glycemic consult and will no longer be making adjustments to inpatient regimen. Please feel free to re-consult if needed. Thank you. DISCHARGE RECOMMENDATIONS: * A1c 7.0 % on 10/30/19 * A1c within goal - would recommend continuation of home diabetic agents on discharge as long as no contraindications present (reporting frequent hypoglycemia)
[2019-11-23] MEDS: LACTOBACILLUS ACIDOPHILUS (FLORANEX) TAB PO SCH (08:59)
[2019-11-23] MEDS: BuPROPion XL 300 MG TABCR PO SCH (08:59)
[2019-11-23] MEDS: PANTOprazole 40 MG TAB PO SCH (08:59)
[2019-11-23] MEDS: VITAMIN B COMPLEX TAB PO SCH (08:59)
--- NOTE | 2019-11-23 08:59 | Hospitalist Progress Note ---
Date of Service November 23, 2019 Assessment & Plan (1) S/p reverse total shoulder arthroplasty: POD #[address] Carlisle EBL 40ml; hemovac 220ml tolerated procedure well Post op H&H stable Pain/wound management per Ortho Activity and therapy as directed by Ortho Encourage incentive spirometry Pt to be discharged home today (2) CAD (coronary artery disease): hx of BMS to RCA in 2000; subsequent CABGx 3 follows [facility] cardiology on ASA, Statin, metoprolol and lisinopril as outpt no chest pain/sob Chronic diastolic (congestive) heart failure HX of diastolic CHF, Follows with [facility] cardiology Preoperative echo showed an EF of 55 to 59%, mid posterior wall and basal inferior wall hypokinesis, grade 1 diastolic dysfunction of the left ventricle, mild aortic valve sclerosis, mild mitral regurgitation, Stable volume status Continue to hold lasix and lisinopril in setting of hypotension, educated about symptomatic hypotension Can resume at discharge with close BP monitoring. Hold if SBP < 110. IF cons istently less than 110 educated to follow up with PCP (3) Diabetes mellitus, type 2: controlled, a1c 7.0 hold metformin Glycemic pharmacy on board - appreciate their management BSG stable (4) Hypertension: blood pressure , Remains on low side 97/61 this morning Continue to hold lasix and lisinopril in setting of hypotension, educated about symptomatic hypotension Can resume at discharge with close BP monitoring. Hold if SBP < 110. IF consistently less than 110 educated to follow up with PCP (5) CKD (chronic kidney disease), stage III: Renal function remains at baseline Cr 1.09 (6) Hyperlipidemia: continue statin (7) Sleep apnea: CPAP @ HS (8) DVT prophylaxis: per ortho disposition: per primary Follow up: PCP Mandy Moore upon discharge Thank you for this consultation. We will follow the patient with you during their hospital stay. You can reach a member of the [facility] Hospitalist Team 11/10 via pager @ [phone]. Admission and Anticipated Discharge Date Admission Date: November 21, 2019 Supervising Physician Co-Signing Physician Notes Attending note: Patient seen at bedside, care coordinated with Luna Dickey PA-C Patient denies of any pain or discomfort Patient is discharged by orthopedics team this morning, Orthopedics team request evaluation from Medicine/hospitalist for recommendation regarding antihypertensive meds, Patient's blood pressures been stable, BP 120/73 Does not have any symptoms : no dizzy spell or lightheadedness Patient can be discharged with his prior antihypertensive meds We will schedule a hospital follow-up with family physician, Repeat BP check, Patient may benefit with reducing the Lasix dose to 20 mg daily from 40 mg daily Defer the decision by patient's cardiology and family physician Patient is medically stable to be discharged home. Physical exam: Per Luna Dickey PA-C please refer to further documentation by Luna Dickey PA-C for discussion of other medical issues: Gia Hahn MD Subjective Pt was seen and examined in room 353-2. Follow up L Reverse total shoulder, POD #2. He is being discharged home today. Overall feels well and no current pain. 2 Small BMs yesterday. Passing flatus. Denies dizziness, lightheaded, chest pain, sob, n/v/d. Appetite overall good. Offers no complaints or concerns. Discussed BP on lower side, but asymptomatic. Review of Systems Review of Systems: All systems reviewed & are unremarkable except as noted in HPI & below Physical Exam Physical Exam: Gen: WD/WN, Tall, M, sitting in bedside chair, NAD, A&O x3 HEENT: Normocephalic, atraumatic, conjunctivae moist, sclerae anicteric, mucous membranes moist. Lung: Clear to Auscultation bilaterally, no wheezes/rales/rhonchi Heart: Regular rate, regular rhythm, no murmurs, rubs, or gallops Abdomen: Soft, NT, ND +BS x 4 Extremities: No edema, L shoulder dressing CDI, hemovac in place Skin: Warm, no rash, negative turgor. Results & Data Results & Data ([facility]) Vital Signs (Past 12 Hours) Vital Signs Temp Pulse Pulse Resp BP Pulse Ox 11/23/19 07:22 36.8 C 91 H 18 97/61 L 96 11/23/19 04:00 36.5 C 86 16 112/76 95 11/22/19 23:45 70 18 98 11/22/19 23:13 36.4 C L 92 H 18 119/72 92 Laboratory Results Short CBC 11/23/19 Range/Units 05:28 WBC 7.84 (4.8-10.8) K/uL Hgb 11.7 L (14.0-18.0) g/dL Hct 35.3 L (42-52) % Plt Count 191 (130-400) K/uL BMP 11/23/19 05:28 Sodium 138 Potassium 3.7 Chloride 107 Carbon Dioxide 24 BUN 15 Creatinine 1.09 Glucose 133 H Calcium 8.3 L Medications Administered Acetaminophen (Acetaminophen 325 Mg Tab) 650 mg PO Q8H [facility] Stop: 12/22/19 00:00 Last Admin: 11/23/19 01:16 Dose: 650 mg Documented by: [id number] Admin: 11/22/19 17:24 Dose: 650 mg Documented by: [id number] Admin: 11/22/19 09:08 Dose: 650 mg Documented by: [id number] Admin: 11/21/19 23:40 Dose: 650 mg Documented by: [id number] Aspirin (Aspirin 81 Mg Ectab) 81 mg PO HS [facility] Stop: 12/21/19 16:14 Last Admin: 11/22/19 20:22 Dose: 81 mg Documented by: [id number] Admin: 11/21/19 20:58 Dose: 81 mg Documented by: [id number] Bupropion HCl (Bupropion Xl 300 Mg Tabcr) 300 mg PO QAM [facility] Stop: 12/22/19 08:59 Last Admin: 11/22/19 09:10 Dose: 300 mg Documented by: [id number] Insulin Aspart (Insulin Aspart 100 Units/Ml 3 Ml Pen) 0 units SC ACHS [facility] Stop: 12/21/19 17:14 Last Admin: 11/22/19 20:39 Dose: 1 units Documented by: [id number] Cosigned by: [id number] Admin: 11/22/19 18:22 Dose: Not Given Documented by: [id number] Cosigned by: [id number] Admin: 11/22/19 13:06 Dose: 5 units Documented by: [id number] Cosigned by: [id number] Admin: 11/22/19 09:15 Dose: 3 units Documented by: [id number] Cosigned by: [id number] Admin: 11/21/19 21:05 Dose: 2 units Documented by: [id number] Cosigned by: [id number] Admin: 11/21/19 17:49 Dose: 5 units Documented by: [id number] Cosigned by: [id number] Lactobacillus Acidophilus (Lactobacillus Acidophilus (Floranex) Tab) 4 tab PO QAM [facility] Stop: 12/22/19 08:59 Last Admin: 11/22/19 09:09 Dose: 4 tab Documented by: [id number] Metformin HCl (Metformin Hcl Er 500 Mg Tabcr) 500 mg PO BIDM [facility] Stop: 12/22/19 16:59 Last Admin: 11/22/19 17:24 Dose: 500 mg Documented by: [id number] Metoprolol Succinate (Metoprolol Succ 25mg Ext Rel Tab) 25 mg PO [facility] Stop: 12/22/19 08:59 Last Admin: 11/22/19 09:10 Dose: 25 mg Documented by: [id number] Multivitamins/Minerals (Cerovite Adv Formula Tab) 1 tab PO [facility] Stop: 12/22/19 08:59 Last Admin: 11/22/19 09:10 Dose: 1 tab Documented by: [id number] Oxycodone HCl (Oxycodone Hcl Ir 5 Mg Tab (Immediate Release)) 5 - 10 mg PO Q4H PRN PRN Reason: Pain Stop: 12/05/19 15:39 Last Admin: 11/22/19 22:25 Dose: 10 mg Documented by: [id number] Pantoprazole Sodium (Pantoprazole 40 Mg Tab) 40 mg PO [facility] Stop: 12/21/19 16:29 Last Admin: 11/22/19 09:09 Dose: 40 mg Documented by: [id number] Admin: 11/21/19 18:06 Dose: 40 mg Documented by: [id number] Potassium Chloride (Potassium Chloride 10 Meq Tabcr) 10 meq PO BID [facility] Stop: 12/21/19 20:59 Last Admin: 11/22/19 20:22 Dose: 10 meq Documented by: [id number] Admin: 11/22/19 09:08 Dose: 10 meq Documented by: [id number] Admin: 11/21/19 20:58 Dose: 10 meq Documented by: [id number] Rosuvastatin Calcium (Rosuvastatin Calcium 20 Mg Tab) 40 mg PO HS [facility] Stop: 12/21/19 20:59 Last Admin: 11/22/19 20:22 Dose: 40 mg Documented by: [id number] Admin: 11/21/19 20:58 Dose: 40 mg Documented by: [id number] Vitamin B Complex (Vitamin B Complex Tab) 1 tab PO [facility] Stop: 12/22/19 08:59 Last Admin: 11/22/19 09:10 Dose: 1 tab Documented by: [id number] Vitamin D (Cholecalciferol 1,000 Units 25 Mcg Tab) 2,000 units PO QAM [facility] Stop: 12/22/19 08:59 Last Admin: 11/22/19 09:10 Dose: 2,000 units Documented by: [id number] Discontinued Medications Acetaminophen (Acetaminophen 500 Mg Tab) 1,000 mg PO PREOP [facility] Stop: 11/21/19 18:00 Last Admin: 11/21/19 08:06 Dose: 1,000 mg Documented by: [id number] Acetaminophen (Acetaminophen 500 Mg Tab) 1,000 mg PO Q8 [facility] Stop: 12/21/19 16:14 Last Admin: 11/21/19 17:13 Dose: 1,000 mg Documented by: [id number] Bacitracin (Bacitracin Inj 50,000 Unit Vial) Confirm Administered Dose 50,000 units .ROUTE .STK-MED ONE Stop: 11/21/19 10:00 Last Admin: 11/21/19 12:26 Dose: 50,000 units Documented by: [id number] Celecoxib (Celebrex 200 Mg Cap) 200 mg PO PREOP [facility] Stop: 11/21/19 18:00 Last Admin: 11/21/19 08:05 Dose: 200 mg Documented by: [id number] Famotidine (Famotidine 20 Mg Tab) 20 mg PO PREOP [facility] Stop: 11/21/19 18:00 Last Admin: 11/21/19 08:04 Dose: 20 mg Documented by: [id number] Gabapentin (Gabapentin 300 Mg Cap) 300 mg PO PREOP [facility] Stop: 11/21/19 18:00 Last Admin: 11/21/19 08:05 Dose: 300 mg Documented by: [id number] Vancomycin HCl 1,750 mg/ (Sodium Chloride) 535 mls @ 200 mls/hr IV PREOP [facility] Stop: 11/21/19 18:00 Last Infusion: 11/21/19 15:40 Dose: 0 mls/hr Documented by: [id number] Admin: 11/21/19 07:27 Dose: 200 mls/hr Documented by: [id number] Lactated Ringer's (Lr) 1,000 mls @ 15 mls/hr IV .Q24H [facility] Stop: 11/22/19 05:59 Last Infusion: 11/21/19 10:21 Dose: 0 mls/hr Documented by: [id number] Admin: 11/21/19 07:27 Dose: 15 mls/hr Documented by: [id number] Vancomycin HCl 1,750 mg/ (Sodium Chloride) 535 mls @ 200 mls/hr IV Q12 [facility] Stop: 11/21/19 20:59 Last Infusion: 11/21/19 22:16 Dose: 0 mls/hr Documented by: [id number] Admin: 11/21/19 19:35 Dose: 200 mls/hr Documented by: [id number] Lactated Ringer's (Lr) 1,000 mls @ 80 mls/hr IV .[id number] [facility] Stop: 11/22/19 18:29 Last Infusion: 11/22/19 20:20 Dose: 0 mls/hr Documented by: [id number] Admin: 11/22/19 07:38 Dose: 80 mls/hr Documented by: [id number] Infusion: 11/22/19 07:38 Dose: 80 mls/hr Documented by: [id number] Infusion: 11/21/19 22:16 Dose: 80 mls/hr Documented by: [id number] Infusion: 11/21/19 19:35 Dose: 0 mls/hr Documented by: [id number] Admin: 11/21/19 17:47 Dose: 80 mls/hr Documented by: [id number] Insulin Aspart (Insulin Aspart 100 Units/Ml 3 Ml Pen) 0 units SC TODAY@0000,0400 [facility] Stop: 11/22/19 04:01 Last Admin: 11/22/19 03:44 Dose: Not Given Documented by: [id number] Cosigned by: [id number] Admin: 11/21/19 23:48 Dose: Not Given Documented by: [id number] Cosigned by: [id number] Insulin Glargine (Insulin Glargine Solostar 100 Units/Ml 3 Ml Pen) 10 units SC NOW ONE Stop: 11/21/19 17:16 Last Admin: 11/21/19 17:51 Dose: 10 units Documented by: [id number] Cosigned by: [id number] Insulin Glargine (Insulin Glargine Solostar 100 Units/Ml 3 Ml Pen) 0 units SC ONE; Protocol Stop: 11/21/19 21:01 Last Admin: 11/21/19 21:04 Dose: 10 units Documented by: [id number] Cosigned by: [id number] Metoclopramide HCl (Metoclopramide Hcl 10 Mg Tablet) 10 mg PO PREOP [facility] Stop: 11/21/19 18:00 Last Admin: 11/21/19 08:05 Dose: 10 mg Documented by: [id number] Miscellaneous (Ortho Joint Anesthetic ) Confirm Administered Dose 1 ea .ROUTE .STK-MED ONE Stop: 11/21/19 09:54 Last Admin: 11/21/19 12:26 Dose: Not Given Documented by: [id number] Miscellaneous (Order Awaiting Action) 1 ea N/A QS [facility] Stop: 12/22/19 00:00 Last Admin: 11/22/19 09:11 Dose: Not Given Documented by: [id number] Admin: 11/21/19 23:40 Dose: Not Given Documented by: [id number] Miscellaneous (Linzess 72 Mcg~Order Awaiting Action) 1 ea N/A QS [facility] Stop: 12/22/19 00:00 Last Admin: 11/22/19 09:11 Dose: Not Given Documented by: [id number] Admin: 11/21/19 23:40 Dose: Not Given Documented by: [id number]
[2019-11-23] MEDS ORDERED: LINACLOTIDE 72 MCG CAPSULE PO SCH (09:00)
[2019-11-23] MEDS: METFORMIN HCL ER 500 MG TABCR PO SCH (09:00)
[2019-11-23] MEDS: CEROVITE ADV FORMULA TAB PO SCH (09:00)
[2019-11-23] MEDS: CHOLECALCIFEROL 1,000 UNITS 25 MCG TAB PO SCH (09:00)
[2019-11-23] MEDS: INSULIN ASPART 100 UNITS/ML 3 ML PEN SC SCH (09:03)
[2019-11-23] MEDS: METOPROLOL SUCC 25MG EXT REL TAB PO SCH (09:13)
[2019-11-23] MEDS: POTASSIUM CHLORIDE 10 MEQ TABCR PO SCH (11:06)
--- NOTE | 2019-12-04 11:22 | Discharge Summary (DS) ---
HISTORY OF PRESENT ILLNESS: This is a 74-year-old male patient of Dr. Carlisle's, complaining of chronic left shoulder pain and weakness. He has failed conservative treatment and has elected to proceed with a left reverse total shoulder arthroplasty and distal clavicle excision. PAST MEDICAL HISTORY: Congestive heart failure, coronary artery disease, status post an CT in 2000, sleep apnea with use of CPAP, anxiety, peripheral neuropathy, diabetes mellitus, osteoarthritis, spine problems, neck problems, upper back problems, sciatica, acid reflux and hiatal hernia. POSTOPERATIVE COURSE: The patient underwent a left reverse total shoulder arthroplasty, biceps tenodesis and distal clavicle excision on 11/21/2019. Postoperatively, he was followed closely with medical consultation, DVT prophylaxis in the form of aspirin, physical therapy and pain control. He did have postoperative hypotension. Medical consultation did hold some of his blood pressure medications. He was stable in the low 100s systolically on discharge, the patient will follow his blood pressure regularly with his family physician 1 week postop with medicine adjustments as needed per family physician. Follow up with Dr. Carlisle as scheduled as an outpatient.
== END 2019-11-23 13:33 | disposition home or self-care (01) | DRG 483 ==
LOC: ASU 06:35 → 3W 14:05